=== PATIENT | male | born 1950 | race Caucasian/White ===

== ENCOUNTER → 2018-11-08 10:52 | Outpatient (CLI) | payer MEDICARE, OTHER, SELFPAY ==
--- NOTE | 2018-11-08 10:55 | MR_ITS ---
MR knee RT wo con Ordering Physician: Penny Kenney MD Patient Age: 68 years: Male HISTORY: ITS.REASON: RIGHT MEDIAL KNEE PAIN, H/O MEDIAL MENISCUS REPAIR OF RT KNE Right knee pain on and off for one year. Pain is worse when with walking. Pain is medial. Previous meniscal repair 5-7 years ago TECHNIQUE: Multiplanar multisequence imaging 1.5 Jessie Siemens, MRI COMPARISON : No previous studies for comparison FINDINGS . Lateral Compartment: intact . Lateral joint space and cartilage well maintained dial meniscus The lateral meniscus appears overall intact with no definitive tear. Upper normal cortical signal is seen at the posterior horn and posterior meniscal root but likely artifactual artifact Medial Compartment: Focal osteochondral defect, & small area of osteochondritis measuring up to 6 mm mm diameter x 2.5 mm depth. Surprisingly minimal reactive changes at the ducts this area and about its margin suggestion is old and healed. There is focal chondral thinning here and regional mild diffuse chondral loss about this area and at medial femoral condyle weightbearing surface . At the far posterior aspect of the medial femoral condyle is a Second small osteochondral signal defect measures 8 mm height, just over 3 mm depth. No focal can cavity, osseous defect. Only some slight variations in signal cartilage overlying this area. On final review a tiny Third osteochondral signal irregularity focus less than 5 mm x 3 mm depth is seen on coronal image 19 sagittal 57 at the medial corner of the medial femoral condyle ----- The the body and posterior horn of of medial meniscus demonstrates some varying signal at its inferior margin although this may reflect in part old old meniscal repair is difficult exclude a recurrent meniscal surface irregularity mainly suspect at the at at body-posterior horn region... Posterior horn appears very slightly truncated free margin on thin sections as well. This could reflect a tiny. May require further investigation particularly if pain in this area as well. The signal variations at the body are just medial to the described osteochondral defect. Which may reflect degeneration or possibly old injury here as well.. Mild increased likely reactive bone signal changes just at the very medial anterior margin of the medial tibial plateau anteriorly. Patellofemoral joint. The lateral facet appears satisfactory. The medial facet with slight undulation and cannot exclude shallow mild osteochondral irregularity at its medial margin .. Upper normal to slightly increased joint fluid. ACL is thin but intact PCL unremarkable. Medial collateral ligament is intact but there is some mild fluid signal edema overlying the intact MCL Lateral collateral ligament unremarkable. ...... Clinical IMPRESSION......... 1. Small Osteochondral defect/ (with small focus osteochondritis dissecans) -at Central weightbearing surface of medial femoral condyle 2. Focal chondral loss most pronounced at this site.- But with more diffuse chondral loss throughout the central weightbearing portion of of medial femoral condyle. 3. A Second small osteochondral signal abnormality at posterior most aspect of medial femoral condyle no bony defect. Cortex intact. 4. Very small third osteochondral signal irregularity focus less or subchondral cyst. - at the medial corner of the medial femoral condyle 5. Medial meniscus signal irregularities. Most notable at body of medial meniscus. But also slight concave contour at inferior surface of posterior horn. These could in part reflect postsurgical changes but cannot exclude some recurrent meniscal surface irregularities, or partial meniscal surface tear in these areas. Also note the anterior horn is relatively small at medial comp
== END ==
PROVIDERS: PCP Emergency Medicine; Visit Provider Emergency Medicine
DX: M25.561 Pain in right knee (principal); Z98.890 Other specified postprocedural states
CPT/HCPCS: 73721

== ENCOUNTER 2019-03-14 10:00 | Outpatient (RCR) | payer MEDICARE, OTHER, SELFPAY | END 2019-03-14 10:05 | disposition home or self-care (01) | LOC: PT 10:00 | PROVIDERS: Visit Provider Orthopaedic Surgery | DX: M25.561 Pain in right knee (principal) | CPT/HCPCS: 97010; 97014; 97110; 97163; G0283 ==

== ENCOUNTER → 2019-04-01 14:22 | Outpatient (CLI) | payer MEDICARE, OTHER, SELFPAY ==
[2019-04-01 16:32] LABS: Prostate Specific Ag Screen 1.8 ng/mL (0.0-4.0)
== END ==
PROVIDERS: Visit Provider Urology
DX: Z12.5 Encounter for screening for malignant neoplasm of prostate (principal); N40.0 Benign prostatic hyperplasia without lower urinary tract symptoms
CPT/HCPCS: 36415; G0103

== ENCOUNTER → 2019-04-17 07:42 | Outpatient (CLI) | payer MEDICARE, OTHER, SELFPAY ==
--- NOTE | 2019-04-17 07:44 | MR_ITS ---
PROCEDURE: MR SHOULDER LT WO CON CLINICAL INDICATION: BICEPS TENDONITIS OF LEFT SHOULDER Left shoulder pain extending to the mid humeral region COMPARISON: No exams were available for comparison TECHNIQUE: Routine multiplanar multi echo sequences are performed without gadolinium enhancement. FINDINGS: There is acromioclavicular arthropathy with hypertrophy and subacromial stenosis causing some impingement upon the musculotendinous insertion of the supraspinatus tendon. There is thickening with some heterogeneous increased T2 signal involving the distal aspect of the supraspinatus tendon consistent with tendinopathy/tendinosis. No complete tear evident. There may be a partial tear along the undersurface of the supraspinatus tendon distally. The infraspinatus tendon, teres minor tendon, and subscapularis tendons are unremarkable. No labral tear apparent. The bicipital tendon is in place. A small amount of fluid is present along the posterior aspect of the bicipital tendon distal to the bicipital groove. IMPRESSION: 1. Hypertrophic change of the acromioclavicular joint with subacromial stenosis with tendinopathy/tendinosis of the supraspinatus tendon. There may be a partial tear distally along the undersurface of the supraspinatus tendon 2. Minimal amount of fluid is noted along the posterior aspect of the bicipital tendon sheath which may reflect mild tendinitis. Dictated by: Fritz Cardoza MD 04/18/2019 11:16 Electronically signed by Fritz Cardoza MD in [place] 04/18/2019 11:16
== END ==
PROVIDERS: PCP Emergency Medicine; Visit Provider Emergency Medicine
DX: M67.814 Other specified disorders of tendon, left shoulder (principal)
CPT/HCPCS: 73221

== ENCOUNTER 2019-05-07 11:00 | Outpatient (RCR) | payer MEDICARE, OTHER, SELFPAY | END 2019-05-07 11:05 | disposition home or self-care (01) | LOC: OT 11:00 | PROVIDERS: PCP Emergency Medicine; Visit Provider Orthopaedic Surgery | DX: M75.42 Impingement syndrome of left shoulder (principal); M75.41 Impingement syndrome of right shoulder | CPT/HCPCS: 97014; 97110; 97166; G0283 ==

== ENCOUNTER → 2019-05-30 12:27 | Outpatient (CLI) | payer MEDICARE, OTHER, SELFPAY ==
[2019-05-30 12:44] LABS: Microscopic, Urine URINE MICROSCOPIC (MICROSCOPIC)
[2019-05-30 13:03] LABS: Appearance,Urine CLEAR (Clear); Bilirubin,Urine Negative (Negative); Blood, Urine Negative (Negative); Color,Urine YELLOW (Yellow); Glucose,Urine (UA) Negative (Negative); Ketones,Urine Negative (Negative); Leukocyte Esterase,Urine Negative (Negative); Nitrate,Urine Negative (Negative); PH,Urine 7.5 (5.0-8.5); Protein,Urine Negative (Negative); Urobilinogen,Urine 0.2 EU/dl (0.2)
[2019-05-30 13:36] LABS: Bacteria,Urine Trace /lpf; Squamous Epithelial Cell,Urine Occasional #/hpf (0-5); WBC,Urine Occasional #/hpf (0-3)
[2019-05-30 15:13] LABS: Albumin Level 4.1 gm/dL (3.4-5.0); Anion Gap 14.1 mEq/L (5-15); Blood Urea Nitrogen 25 mg/dL (7-18); Calcium 9.2 mg/dL (8.5-10.1); Carbon Dioxide 29 mmol/L (21.0-32.0); Chloride 102 mmol/L (98-107); Creatinine,Serum 1.09 mg/dL (0.70-1.30); Estimated Glomerular Filt Rate 67 ml/min (>60); GFR (African American) 81 ML/MIN (>60); Glucose 88 mg/dL (74-106); Phosphorous 3.4 mg/dL (2.4-4.9); Potassium 4.1 mmoL/L (3.5-5.1); Sodium 141 mmol/L (136-145)
[2019-05-31 10:20] LABS: Vitamin D 25 Hydroxy 40.7 ng/mL (30.0-100.0)
== END ==
PROVIDERS: Visit Provider Internal Medicine Nephrology
DX: N21.9 Calculus of lower urinary tract, unspecified (principal); N17.9 Acute kidney failure, unspecified; N40.0 Benign prostatic hyperplasia without lower urinary tract symptoms; E78.5 Hyperlipidemia, unspecified; E55.9 Vitamin D deficiency, unspecified
CPT/HCPCS: 36415; 80069; 81001; 82652; 84550

== ENCOUNTER → 2019-12-23 08:29 | Outpatient (CLI) | payer MEDICARE, OTHER, SELFPAY ==
--- NOTE | 2019-12-23 08:30 | XR_ITS ---
PROCEDURE: XR KNEE RT 4V CLINICAL INDICATION: right knee pain COMPARISON: No exams were available for comparison FINDINGS: No fracture or dislocation. No lytic or blastic change. There is normal mineralization. There are mild osteoarthritic changes of the medial compartment and patellofemoral joint. There is generalized vascular calcification. Other findings:None. IMPRESSION: Mild osteoarthritis Dictated by: Fritz Cardoza MD 12/23/2019 08:56 Electronically signed by Fritz Cardoza MD in [place] 12/23/2019 08:56
== END ==
PROVIDERS: PCP Family Medicine; Visit Provider Orthopaedic Surgery
DX: M25.561 Pain in right knee (principal)
CPT/HCPCS: 73564

== ENCOUNTER → 2020-03-01 12:46 | Outpatient (CLI) | payer MEDICARE, OTHER, SELFPAY ==
[2020-03-01 12:55] LABS: Microscopic, Urine URINE MICROSCOPIC (MICROSCOPIC)
[2020-03-01 13:42] LABS: Appearance,Urine CLEAR (Clear); Bilirubin,Urine Negative (Negative); Blood, Urine Negative (Negative); Color,Urine YELLOW (Yellow); Glucose,Urine (UA) Negative (Negative); Ketones,Urine Negative (Negative); Leukocyte Esterase,Urine Negative (Negative); Nitrate,Urine Negative (Negative); Protein,Urine Negative (Negative); Specific Gravity, Urine 1.015 (1.005-1.030); Urobilinogen,Urine 0.2 EU/dl (0.2)
[2020-03-01 13:53] LABS: Albumin Level 4.7 g/dl (3.5-5.0); Anion Gap 15.7 mEq/L (5-15); Blood Urea Nitrogen 25 mg/dl (9-20); Calcium 10.3 mg/dl (8.4-10.2); Carbon Dioxide 32 mmol/L (22.0-30.0); Chloride 98 mmol/L (98-107); Estimated Glomerular Filt Rate 74 ml/min (>60); GFR (African American) 89 ML/MIN (>60); Glucose 99 mg/dl (74-100); Phosphorous 3.8 mg/dl (2.5-4.5); Potassium 4.7 mmoL/L (3.5-5.1); Sodium 141 mmol/L (136-145)
[2020-03-01 14:05] LABS: Intact Parathyroid Hormone 31.2 pg/mL (7.5-53.5)
[2020-03-01 14:11] LABS: 25-OH Vitamin D, Total 57.2 ng/mL (30-100)
[2020-03-01 14:24] LABS: Prostate Specific Ag, Diagnost 1.89 ng/ml (0.0-4.0)
== END ==
PROVIDERS: Visit Provider Internal Medicine Nephrology
DX: N40.0 Benign prostatic hyperplasia without lower urinary tract symptoms (principal); E55.9 Vitamin D deficiency, unspecified
CPT/HCPCS: 36415; 80069; 81001; 82306; 83970; 84153

== ENCOUNTER → 2020-04-20 14:50 | Outpatient (POV) | payer MEDICARE, OTHER, SELFPAY | PROVIDERS: Visit Provider Dermatology | DX: Z00.00 Encounter for general adult medical examination without abnormal findings (principal) ==

== ENCOUNTER → 2020-08-25 11:58 | Outpatient (CLI) | payer MEDICARE, OTHER, SELFPAY ==
[2020-08-25 12:03] LABS: Microscopic, Urine URINE MICROSCOPIC (MICROSCOPIC)
[2020-08-25 12:43] LABS: Appearance,Urine CLEAR (Clear); Bilirubin,Urine Negative (Negative); Blood, Urine Negative (Negative); Color,Urine YELLOW (Yellow); Glucose,Urine (UA) Negative (Negative); Ketones,Urine Negative (Negative); Leukocyte Esterase,Urine Negative (Negative); Nitrate,Urine Negative (Negative); PH,Urine 8.5 (5.0-8.5); Protein,Urine Negative (Negative); Specific Gravity, Urine 1.015 (1.005-1.030); Urobilinogen,Urine 0.2 EU/dl (0.2)
[2020-08-25 12:54] LABS: Amorphous Sediment,Urine 1+ /lpf; Bacteria,Urine 1+ /lpf
[2020-08-25 13:30] LABS: Albumin Level 4.7 g/dl (3.5-5.0); Anion Gap 12.1 mEq/L (5-15); Blood Urea Nitrogen 18 mg/dl (9-20); Carbon Dioxide 32 mmol/L (22.0-30.0); Chloride 100 mmol/L (98-107); Estimated Glomerular Filt Rate 74 ml/min (>60); GFR (African American) 89 ML/MIN (>60); Glucose 99 mg/dl (74-100); Phosphorous 3.4 mg/dl (2.5-4.5); Potassium 4.1 mmoL/L (3.5-5.1); Sodium 140 mmol/L (136-145); Uric Acid 3.6 mg/dl (3.5-8.5)
[2020-08-25 13:47] LABS: 25-OH Vitamin D, Total 35.9 ng/mL (30-100)
== END ==
PROVIDERS: Visit Provider Internal Medicine Nephrology
DX: N17.9 Acute kidney failure, unspecified (principal); N21.9 Calculus of lower urinary tract, unspecified; N40.0 Benign prostatic hyperplasia without lower urinary tract symptoms; E78.5 Hyperlipidemia, unspecified; E55.9 Vitamin D deficiency, unspecified
CPT/HCPCS: 36415; 80069; 81001; 82306; 84550; 87086

== ENCOUNTER → 2020-09-10 13:30 | Outpatient (POV) | payer MEDICARE, OTHER, SELFPAY | PROVIDERS: Visit Provider Internal Medicine Nephrology | DX: Z00.00 Encounter for general adult medical examination without abnormal findings (principal) ==

== ENCOUNTER → 2020-09-16 10:34 | Outpatient (CLI) | payer MEDICARE, OTHER, SELFPAY ==
--- NOTE | 2020-09-16 10:52 | XR_ITS ---
PROCEDURE: XR CHEST 2V CLINICAL HISTORY: CONTUSION OF LT FRONT WALL OF THORAX COMPARISON: No exams were available for comparison FINDINGS: The cardiomediastinal silhouette and pulmonary vascularity are within normal limits. The lungs are clear without infiltrates, suspicious nodules, or pleural effusions. Calcified granuloma in the left lung. Vascular calcification is noted. No acute bony abnormalities. IMPRESSION: No acute findings. Dictated by: Mara Viera 09/16/2020 11:39 Mara Viera in [place] 09/16/2020 11:39
== END ==
PROVIDERS: PCP Family Medicine; Visit Provider Family Medicine
DX: S20.212D Contusion of left front wall of thorax, subsequent encounter (principal)
CPT/HCPCS: 71046

== ENCOUNTER → 2021-03-05 09:00 | Outpatient (CLI) | payer MEDICARE, OTHER, SELFPAY ==
[2021-03-05 09:07] LABS: Microscopic, Urine URINE MICROSCOPIC (MICROSCOPIC)
[2021-03-05 10:21] LABS: Alanine Aminotransferase 49 U/L (12-78); Albumin Level 4.6 g/dl (3.5-5.0); Albumin/Globulin Ratio 1.8 (1.1-1.8); Alkaline Phosphatase 78 U/L (38-126); Anion Gap 14.3 mEq/L (5-15); Aspartate Amino Transferase 43 U/L (17-59); Bilirubin,Total 0.5 mg/dl (0.2-1.3); Blood Urea Nitrogen 27 mg/dl (9-20); Carbon Dioxide 32 mmol/L (22.0-30.0); Chloride 101 mmol/L (98-107); Estimated Glomerular Filt Rate 74 ml/min (>60); GFR (African American) 89 ML/MIN (>60); Globulin 2.6 g/dL (1.3-3.2); Glucose 83 mg/dl (74-100); Potassium 4.3 mmoL/L (3.5-5.1); Sodium 143 mmol/L (136-145); Total Protein,Serum 7.2 g/dl (6.3-8.2); Uric Acid 3.9 mg/dl (3.5-8.5)
[2021-03-05 10:26] LABS: Appearance,Urine CLEAR (Clear); Bilirubin,Urine Negative (Negative); Blood, Urine Negative (Negative); Color,Urine YELLOW (Yellow); Glucose,Urine (UA) Negative (Negative); Ketones,Urine Negative (Negative); Leukocyte Esterase,Urine Negative (Negative); Nitrate,Urine Negative (Negative); PH,Urine 7.5 (5.0-8.5); Protein,Urine Negative (Negative); Urobilinogen,Urine 0.2 EU/dl (0.2)
[2021-03-05 10:33] LABS: Intact Parathyroid Hormone 34.8 pg/mL (7.5-53.5)
[2021-03-05 10:39] LABS: 25-OH Vitamin D, Total 58.5 ng/mL (30-100)
[2021-03-05 10:48] LABS: Hematocrit 48.5 % (42.0-52.0); Hemoglobin 16.7 g/dL (14.1-18.0); Mean Corpuscular HGB Conc 34.4 g/dL (31.8-35.4); Mean Corpuscular Hemoglobin 33.2 pg (27.0-31.2); Mean Corpuscular Volume 96.6 fl (80-94); Platelet Count 197 K/mm3 (142-424); Red Blood Count 5.02 M/mm3 (4.60-6.20); Red Cell Distribution Width 13.3 % (11.5-17.5); White Blood Count 7.5 K/mm3 (4.8-10.8)
== END ==
PROVIDERS: Visit Provider Internal Medicine Nephrology
DX: N18.2 Chronic kidney disease, stage 2 (mild) (principal); N20.0 Calculus of kidney
CPT/HCPCS: 36415; 80053; 81001; 82306; 83970; 84550; 85014; 85018; 85048; 85049

== ENCOUNTER → 2021-03-11 13:50 | Outpatient (POV) | payer MEDICARE, OTHER, SELFPAY | PROVIDERS: Visit Provider Internal Medicine Nephrology | DX: Z00.00 Encounter for general adult medical examination without abnormal findings (principal) ==

== ENCOUNTER → 2021-09-02 11:17 | Outpatient (CLI) | payer MEDICARE, OTHER, SELFPAY ==
[2021-09-02 12:26] LABS: Basophils # 0.1 K/mm3 (0-0.2); Basophils % 0.9 % (0.1-2.0); Eosinophils # 0.2 K/mm3 (0.0-0.4); Hematocrit 48.8 % (42.0-52.0); Hemoglobin 15.8 g/dL (14.1-18.0); Lymphocytes # 1.3 K/mm3 (0.7-4.5); Lymphocytes % 25.7 % (10-50); Mean Corpuscular HGB Conc 32.4 g/dL (31.8-35.4); Mean Corpuscular Hemoglobin 31.4 pg (27.0-31.2); Mean Corpuscular Volume 97.2 fl (80-94); Mean Platelet Volume 8.6 fl (7.4-10.4); Monocytes # 0.4 K/mm3 (0.1-1.0); Monocytes % 7.2 % (1.7-9.3); Neutrophils # 3.3 K/mm3 (1.8-7.8); Neutrophils % 63.2 % (37.0-80.0); Platelet Count 227 K/mm3 (142-424); Red Blood Count 5.03 M/mm3 (4.60-6.20); Red Cell Distribution Width 13.6 % (11.5-17.5); White Blood Count 5.1 K/mm3 (4.8-10.8)
[2021-09-02 13:41] LABS: Anion Gap 18.3 mEq/L (5-15); Blood Urea Nitrogen 23 mg/dl (9-20); Calcium 9.1 mg/dl (8.4-10.2); Carbon Dioxide 24 mmol/L (22.0-30.0); Chloride 101 mmol/L (98-107); Estimated Glomerular Filt Rate 83 ml/min (>60); GFR (African American) 101 ML/MIN (>60); Glucose 91 mg/dl (74-100); Potassium 4.3 mmoL/L (3.5-5.1); Sodium 139 mmol/L (136-145)
== END ==
PROVIDERS: Visit Provider Surgery
DX: K40.90 Unilateral inguinal hernia, without obstruction or gangrene, not specified as recurrent (principal); Z01.812 Encounter for preprocedural laboratory examination; Z11.52 Encounter for screening for COVID-19
CPT/HCPCS: 36415; 80048; 85025; C9803; U0003; U0005

== ENCOUNTER 2021-09-05 06:06 | Day surgery (SDC) | payer MEDICARE, OTHER, SELFPAY ==
[2021-08-30 14:44] VITALS: BMI 26.3
[2021-09-05] VITALS (12 sets, daily range): BP systolic 111–136; BP diastolic 69–86; PULSE 55–72; RESP 12–18; TEMP 36.1–43; O2SAT 92–97
--- NOTE | 2021-09-05 07:32 | HMH.ANESCL ---
[facility] Anesthesia Checklist - Structural Data Admitted From: Home Planned Operative Procedure/s: lap bilat inguinal hernia repair Consent for Planned Operative Procedure(s) Verified: Yes - Additional verifications Anesthesia Reactions: No Hx Blood Transfusions: No Blood Transfusion Reaction: No - Airway Assessment C-Spine Mobility Assessed: Yes TMJ Mobility Assessed: Yes Dentition: Good Dentition - Neurological Assessment Level of Consciousness: Awake, Alert, Appropriate - Anesthesia Plan Anesthesia Risk discussed: Yes Anesthesia Plan: Verified ASA Class: III Anesthesia Type: General - Preoperative Comments Pre-Operative Comments: none [facility] History Medical History: Reports:: Anxiety, Cancer, Depression, Gastroesophageal Reflux Disease(GERD), Hyperlipidemia, Hypertension, Kidney Stones Denies:: Diabetes Mellitus Type 1, Diabetes Mellitus Type 2, Internal Pacemaker, Lung Disease, Seizures *Have you ever received a pneumonia vaccine?: Yes *Have you received a flu vaccine this season?: Yes Other Medical History: Reports: Arthritis. Denies: Blood Transfusion Reaction Anesthesia experience/problems:: none Laterality Cases: Right: Arthroscopy Knee, Bilateral: Tonsillectomy Other Surgeries: Yes: No Previous Surgery, Cancer Surgery, Colonoscopy. No: Pacemaker Amputation: No Fractures: No - *Social History Last grade of school completed: Advanced degree Smoking Status: Never smoker Alcohol Intake: never Substance Use Type: denies use *Occupational Status:: other Housing: house Household Members: spouse *Travel in the last 8 weeks: None - Psychiatric History Pschychiatric History:: Reports:: Anxiety, Depression Family Hx:: No significant family history
--- NOTE | 2021-09-05 08:57 | HMH.OPNOTE ---
Date of procedure: 09/05/21 Pre-op Diagnosis:: Bilateral inguinal hernia Post-op Diagnosis:: Same Procedure performed:: Bilateral laparoscopic inguinal hernia repair (TEPP) with placement of large Bard 3D max mesh bilaterally Surgeon:: Nilesh James MD MENTAL HEALTH PROFESSIONAL:: Giovanni Barker Anesthesia: GETA Estimated blood loss (mL): 15 Clinical Note:: Patient presents for hernia repair. He is a 71-year-old male who was referred by Dr. Clifton Herndon for inguinal hernia. I had initially seen him in the office a couple of months ago. He is a retired pcas and works on a farm. He does state that he has a prior history of lymphoma. He was found to have swelling in the right inguinal area for about 6 months at the time. This has increased in size. He does not have any severe pain. He does wish to resume exercising and is concerned about the hernia. When I saw him in the office he had a moderate right inguinal hernia with probable small left inguinal hernia. I discussed the different options with him including possible laparoscopic repair with mesh. Initially the patient did have some reservation about the mesh. I had recommended he undergo second opinion consultation and he saw surgeon at [facility]. He now wishes to proceed with hernia repair. It was for laparoscopic possible open hernia due to the bilaterality with concentration on the right side given that this was most symptomatic. Operative findings:: He had bilateral inguinal hernias with largely open internal ring is a patent processes vaginalis with weakness in the floor as a direct hernia a as beginnings of direct hernia as well bilaterally. Operative note:: Patient was taken to the operating room. He was given preoperative intravenous antibiotics. In the operating room he was placed in a supine position. General anesthesia was induced via endotracheal tube. Lucas catheter was placed. Abdomen and perineum were prepped and draped in the standard surgical fashion. Infraumbilical skin incision was made. Dissection was carried down to the anterior rectus fascia. Fascia was incised to the right of the linea alba. Rectus muscles were retracted laterally and the preperitoneal space was entered. Dissecting balloon trocar was inserted in the preperitoneal space and the preperitoneal space was dissected out. The dissecting balloon trocar was replaced with the structural balloon trocar. CO2 pneumo preperitoneum was then achieved to 15 mmHg. A couple 5 mm trochars were inserted in the mid abdomen inferior to the umbilical area. Attention was turned to dissection on the right side. Landmarks were identified. Yanick's ligament and pubic tubercle were identified. Dissection was carried out dissecting free the preperitoneal space laterally. Cord structures were dissected free. There was some herniated fat as an indirect hernia with a widely patent processes vaginalis. This was able to be dissected free and reduced. All structures were identified including pubic tubercle and Yanick's ligament, inferior epigastric vessels, cord structures, iliac vessels. The floor of the inguinal canal appeared to be weakened as beginnings of a direct hernia as well. At this time attention was turned to dissection on the left. Once again all landmarks were identified identifying Yanick's ligament, inferior epigastric vessels, cord structures, and iliac vessels. Dissection was carried out dissecting free the preperitoneal space. Herniated fat along with the cord was dissected free and he had a widely patent internal ring as an indirect hernia once again. Dissection was carried out laterally. Once the space was fully dissected free local anesthetic was infiltrated bilaterally for laparoscopically directed nerve block. Large sized Bard 3D max mesh dedicated for the left side was inserted into the preperitoneal space. It was oriented intracorporeally to cover the iliopectineal orifice with good
--- NOTE | 2021-09-05 09:04 | HMH.ANESI ---
[facility] Anesthesia Record Part I Intake, IV Amount: 1,500 Estimated blood loss (mL): 0 Urine output (mL): 250 Blood Pressure: 123/70 SaO2: 96 Pulse Rate: 72 Respiratory Rate: 12 Temperature: 97 F Patient is:: Awake, Stable Stable to PACU at:: 09:00
--- NOTE | 2021-09-05 09:36 | PC.NURSE ---
0928-detailed report called to MAXIME Barlow [id number]-pt transported to post op via stretcher w/carlos rails up and left in care of MAXIME Barlow with bed locked in lowest position, vss, pt stable
[2021-09-05 13:20] LABS: Microscopic,Cath URINE MICROSCOPIC (MICROSCOPIC)
[2021-09-05 14:33] LABS: Appearance,Urine/Cath CLEAR (Clear); Bilirubin,Cath Negative (Negative); Blood, Urine/Cath 1+ (Negative); Color,Urine/Cath YELLOW (Yellow); Glucose,Urine/Cath (UA) Negative (Negative); Ketones,Urine/Cath Negative (Negative); Leukocyte Esterase,Cath Negative (Negative); Nitrate,Cath Negative (Negative); Protein,Urine/Cath Negative (Negative); Urobilinogen,Cath 0.2 EU/dl (0.2)
[2021-09-05 15:11] LABS: Bacteria,Urine/Cath TRACE /lpf; Squamous Epithelial Ur./Cath Occasional #/hpf (0-5); WBC,Urine/Cath Occasional #/hpf (0-3)
--- NOTE | 2021-09-06 07:00 | HMH.ANESII ---
[facility] Anesthesia Record Part II Discharge Time: 09:30 Destination: Surgical Day Care (OP Surgery) PACU nurse assessment reviewed?: Yes Patient Condition:: Good Anesthesia Complications:: None Swallowing reflex intact?: Yes Cyanosis?: No Blood Pressure: 113/69 Pulse Rate: 59 Temperature: 97.6 F Mental Status: Alert & Oriented Pain level:: 2 Nausea and/or vomitting:: None Intake, IV Amount: 0
[2021-09-06 07:01] VITALS: BP 113/69; PULSE 59; TEMP 36.4
== END 2021-09-05 10:31 | disposition home or self-care (01) ==
LOC: OR 06:07
PROVIDERS: PCP Family Medicine; Visit Provider Surgery
PROC: (CPT 49650; principal; 2021-09-05 07:30)
DX: K40.00 Bilateral inguinal hernia, with obstruction, without gangrene, not specified as recurrent (principal); F41.9 Anxiety disorder, unspecified; F32.A Depression, unspecified; K21.9 Gastro-esophageal reflux disease without esophagitis; E78.5 Hyperlipidemia, unspecified; I10 Essential (primary) hypertension; M19.90 Unspecified osteoarthritis, unspecified site; M10.9 Gout, unspecified; Z85.9 Personal history of malignant neoplasm, unspecified; Z87.442 Personal history of urinary calculi; Z79.82 Long term (current) use of aspirin; Z79.899 Other long term (current) drug therapy
CPT/HCPCS: 49650; 81001; 96374; C1781; J2405; J2710

== ENCOUNTER → 2021-11-25 08:27 | Outpatient (CLI) | payer MEDICARE, OTHER, SELFPAY ==
[2021-11-25 09:02] LABS: Microscopic, Urine URINE MICROSCOPIC (MICROSCOPIC)
[2021-11-25 10:02] LABS: Appearance,Urine CLEAR (Clear); Bilirubin,Urine Negative (Negative); Blood, Urine Negative (Negative); Color,Urine YELLOW (Yellow); Glucose,Urine (UA) Negative (Negative); Ketones,Urine Negative (Negative); Leukocyte Esterase,Urine Negative (Negative); Nitrate,Urine Negative (Negative); PH,Urine 7.5 (5.0-8.5); Protein,Urine Negative (Negative); Urobilinogen,Urine 0.2 EU/dl (0.2)
[2021-11-25 10:08] LABS: Hematocrit 48.1 % (42.0-52.0); Hemoglobin 16.3 g/dL (14.1-18.0); Mean Corpuscular HGB Conc 33.8 g/dL (31.8-35.4); Mean Corpuscular Hemoglobin 32.6 pg (27.0-31.2); Mean Corpuscular Volume 96.3 fl (80-94); Platelet Count 202 K/mm3 (142-424); Red Blood Count 4.99 M/mm3 (4.60-6.20); Red Cell Distribution Width 13.5 % (11.5-17.5); White Blood Count 5.6 K/mm3 (4.8-10.8)
[2021-11-25 10:13] LABS: Squamous Epithelial Cell,Urine Occasional #/hpf (0-5); WBC,Urine Occasional #/hpf (0-3)
[2021-11-25 10:51] LABS: Alanine Aminotransferase 32 U/L (12-78); Albumin Level 4.5 g/dl (3.5-5.0); Albumin/Globulin Ratio 1.8 (1.1-1.8); Alkaline Phosphatase 79 U/L (38-126); Anion Gap 12.2 mEq/L (5-15); Aspartate Amino Transferase 38 U/L (17-59); Bilirubin,Total 0.2 mg/dl (0.2-1.3); Blood Urea Nitrogen 20 mg/dl (9-20); Calcium 9.7 mg/dl (8.4-10.2); Carbon Dioxide 32 mmol/L (22.0-30.0); Chloride 101 mmol/L (98-107); Estimated Glomerular Filt Rate 83 ml/min (>60); GFR (African American) 101 ML/MIN (>60); Globulin 2.5 g/dL (1.3-3.2); Glucose 100 mg/dl (74-100); Potassium 4.2 mmoL/L (3.5-5.1); Sodium 141 mmol/L (136-145); Uric Acid 3.5 mg/dl (3.5-8.5)
[2021-11-25 11:04] LABS: Intact Parathyroid Hormone 49.6 pg/mL (7.5-53.5)
[2021-11-25 11:20] LABS: Prostate Specific Ag Screen 2.2 ng/ml (0.0-4.0)
== END ==
PROVIDERS: PCP Urology; Visit Provider Internal Medicine Nephrology
DX: C83.30 Diffuse large B-cell lymphoma, unspecified site (principal); N18.2 Chronic kidney disease, stage 2 (mild); E55.9 Vitamin D deficiency, unspecified; Z12.5 Encounter for screening for malignant neoplasm of prostate
CPT/HCPCS: 36415; 80053; 81001; 82306; 83970; 84550; 85014; 85018; 85048; 85049; G0103

== ENCOUNTER → 2022-01-06 15:21 | Outpatient (POV) | payer MEDICARE, OTHER, SELFPAY | PROVIDERS: Visit Provider Internal Medicine Nephrology | DX: Z00.00 Encounter for general adult medical examination without abnormal findings (principal) ==

== ENCOUNTER → 2022-08-04 10:43 | Outpatient (CLI) | payer MEDICARE, OTHER, SELFPAY ==
--- NOTE | 2022-08-04 10:52 | XR_ITS ---
FINAL REPORT CLINICAL HISTORY: right anterior-medial knee pain, swelling, injection x1 month ago COMPARISON: 12/23/2019 FINDINGS: Three views of the right knee were obtained. There is no acute osseous abnormality of the right knee. The joint space is preserved. There is degenerative joint disease, most pronounced in the medial compartment where it has progressed. Note is made of vascular calcification. IMPRESSION: Degenerative joint disease. Reviewed, Interpreted and Dictated by Poornima Ross MD Transcribed by Margarette Khalil Authenticated and [facility]
== END ==
PROVIDERS: PCP Family Medicine; Visit Provider Orthopaedic Surgery
DX: M17.11 Unilateral primary osteoarthritis, right knee (principal)
CPT/HCPCS: 73562

== ENCOUNTER → 2022-10-09 13:26 | Outpatient (CLI) | payer MEDICARE, OTHER, SELFPAY ==
[2022-10-09 13:43] LABS: Microscopic, Urine URINE MICROSCOPIC (MICROSCOPIC)
[2022-10-09 14:17] LABS: Hematocrit 46.2 % (42.0-52.0); Hemoglobin 15.3 g/dL (14.1-18.0); Mean Corpuscular Hemoglobin 31.6 pg (27.0-31.2); Mean Corpuscular Volume 95.8 fl (80-94); Platelet Count 200 K/mm3 (142-424); Red Blood Count 4.83 M/mm3 (4.60-6.20); Red Cell Distribution Width 13.7 % (11.5-17.5); White Blood Count 7.6 K/mm3 (4.8-10.8)
[2022-10-09 14:40] LABS: Alanine Aminotransferase 27 U/L (12-78); Albumin Level 4.7 g/dl (3.5-5.0); Alkaline Phosphatase 65 U/L (38-126); Anion Gap 13.3 mEq/L (5-15); Aspartate Amino Transferase 30 U/L (17-59); Bilirubin,Total 0.6 mg/dl (0.2-1.3); Blood Urea Nitrogen 27 mg/dl (9-20); Calcium 9.4 mg/dl (8.4-10.2); Carbon Dioxide 32 mmol/L (22.0-30.0); Chloride 98 mmol/L (98-107); Estimated Glomerular Filt Rate 66 ml/min (>60); GFR (African American) 80 ML/MIN (>60); Globulin 2.3 g/dL (1.3-3.2); Glucose 88 mg/dl (74-100); Potassium 4.3 mmoL/L (3.5-5.1); Sodium 139 mmol/L (136-145); Uric Acid 3.1 mg/dl (3.5-8.5)
[2022-10-09 14:53] LABS: 25-OH Vitamin D, Total 50.1 ng/mL (30-100)
[2022-10-09 15:24] LABS: Appearance,Urine CLEAR (Clear); Bilirubin,Urine Negative (Negative); Blood, Urine Negative (Negative); Color,Urine YELLOW (Yellow); Glucose,Urine (UA) Negative (Negative); Ketones,Urine Negative (Negative); Leukocyte Esterase,Urine Negative (Negative); Nitrate,Urine Negative (Negative); PH,Urine 6.5 (5.0-8.5); Protein,Urine Negative (Negative); Specific Gravity, Urine 1.015 (1.005-1.030); Urobilinogen,Urine 0.2 EU/dl (0.2)
[2022-10-09 15:47] LABS: Bacteria,Urine Trace /lpf
[2022-10-09 15:54] LABS: Creatinine,Urine Random 90 mg/dL (Not Estab.)
== END ==
PROVIDERS: PCP Family Medicine; Visit Provider Internal Medicine Nephrology
DX: N20.0 Calculus of kidney (principal); E55.9 Vitamin D deficiency, unspecified; N40.0 Benign prostatic hyperplasia without lower urinary tract symptoms; N18.2 Chronic kidney disease, stage 2 (mild); E78.5 Hyperlipidemia, unspecified; C83.30 Diffuse large B-cell lymphoma, unspecified site
CPT/HCPCS: 36415; 80053; 81001; 82306; 82570; 84155; 84550; 85014; 85018; 85048; 85049

== ENCOUNTER → 2022-10-12 14:49 | Outpatient (CLI) | payer MEDICARE, OTHER, SELFPAY | PROVIDERS: PCP Family Medicine; Visit Provider Internal Medicine Nephrology | DX: N20.0 Calculus of kidney (principal); N18.2 Chronic kidney disease, stage 2 (mild); E55.9 Vitamin D deficiency, unspecified; E78.5 Hyperlipidemia, unspecified; N40.0 Benign prostatic hyperplasia without lower urinary tract symptoms; C83.30 Diffuse large B-cell lymphoma, unspecified site | CPT/HCPCS: 36415 ==

== ENCOUNTER → 2022-10-16 12:52 | Outpatient (CLI) | payer MEDICARE, OTHER, SELFPAY | PROVIDERS: PCP Family Medicine; Visit Provider Family Medicine | DX: R53.83 Other fatigue (principal); G47.33 Obstructive sleep apnea (adult) (pediatric); R06.83 Snoring | CPT/HCPCS: G0399 ==

== ENCOUNTER 2022-10-19 15:00 | Outpatient (RCR) | payer MEDICARE, OTHER, SELFPAY ==
--- NOTE | 2022-08-15 13:23 | HMH.PTOPEV ---
PT Outpatient Evaluation Rehab PT Outpatient Evaluation Start: 08/15/22 13:14 Freq: Status: Active Protocol: Document 08/15/22 13:15 AUDREY (Rec: 08/15/22 13:23 AUDREY [id number]) E-signed By Joe Fisher, PT Outpatient Therapy Subjective History Subjective History Pt reports h/o chronic right knee pain since 'meniscus surgery' ~15 years ago. Pt reports right knee pain has progressed since sx., and now reports constant right knee ( medial > lateral) pain and intermittent episodes of balance deficit d/t pain. Pt reports however, recent right knee injection 'has helped a lot, but I had Covid a couple weeks ago and it really got me down so I feel pretty weak.' Chief Complaint Pain Symptom Type Ache,Sharp,Dull,Stabbing Symptoms Relieved By Prescription Meds Symptoms Aggravated By Standing,Walking Prior Functional Limitations Standing,Walking Current Functional Limitations Housework,Standing,Recreation Activity,Walking Symptom Description Constant but Variable Level of pain today (0-10) 1 Pain scale - at its best (0-10) 1 Pain scale - at its worst (0-10) 7 Hip/Knee Eval Gait Observation General Gait Pattern Observation Antalgic Gait Assistive Device Assistive Devices None / NA Palpation Tenderness right Knee Palpation Finding Tenderness Knee Palpation Overall Comment medial jt line 2-3/4, lateral jt line 1/4 MMT Hip Flexion Strength Grade 4 Good Hip Abduction Strength Grade 4- Good- Hip Adduction Strength Grade 4- Good- Gluteus Cb Strength Grade 4- Good- Hip External Rotation Strength Grade 4 Good Hip Internal Rotation Strength Grade 4 Good Knee Extension Strength Grade 5 Normal Knee Flexion Strength Grade 5 Normal ROM left Knee Flexion Active Range of Motion ( 0-135 degrees) right Knee Flexion Active Range of Motion ( 0-130 degrees) Knee ROM Limitations Soft Tissue Tightness Special Tests Hip Piriformis Test Negative Right Sciatic Nerve Tension Test Negative Right Knee Valgus Stress Test Negative Right Knee Varus Stress Test Negative Right Knee Inocencio Test Negative Right Patella Apprehension Test Negative Right Outpatient Therapy Assessment Impairments Problems/Impairmm
--- NOTE | 2022-09-12 13:47 | HMH.RHREAS ---
Rehab Reassessment Rehab OP Re-assessment Start: 09/12/22 12:52 Freq: Status: Active Protocol: Document 09/12/22 12:53 AUDREY (Rec: 09/12/22 13:47 AUDREY [id number]) E-signed By Joe Fisher, PT Rehab Re-assessment Subjective Subjective Pt reports improved right LE strength and function since I eval, and reports right knee intermittent discomfort @ 3-4/ 10 on VAS Objective Objective Notes MMT: R HIP FLX 5/5, R HIP ABD 4-4+/5, R HIP ADD 5/5, R HIP EXT 4+/5, R HIP IR 5/5, R HIP ER 5/5, R KNEE EXT 5/5, R KNEE FLX 4+-5/5 TTP: R KNEE MEDIAL JT LINE 1/4 AROM: R KNEE FLX 0-133 Assessment Progress Assessment Progressing as Expected Assessment Notes SIGNIFICANT IMPROVEMENT IN RIGHT LE STRENGTH, TTP @ RIGHT KNEE, AND IMPROVED R KNEE AROM Patient goals met STG'S 12/23 LTG'S 10/24 Goals Not Met STG'S 06/25, LTG'S 09/24 Plan Plan Pt to continue w/skilled P.T. to make further improvements in right LE strength, TTP, and ROM to allow for optimal function Frequency of Therapy 1-2x/wk Duration of therapy 2-4wks Time and Billing Re-Eval Time 12 Re-Eval Billing Units 1 PHYSICIAN CERTIFICATION: I certify the specified therapy services for Oli Martinez are required, authorized, and reviewed every 30 days.
--- NOTE | 2022-10-12 15:39 | HMH.RHREAS ---
Rehab Reassessment Rehab OP Re-assessment Start: 09/12/22 12:52 Freq: Status: Active Protocol: Document 10/12/22 15:20 AUDREY (Rec: 10/12/22 15:39 AUDREY [id number]) E-signed By Joe Fisher, PT Rehab Re-assessment Subjective Subjective Pt reports improved right LE strength and function @75-80% overall since I eval, and reports right knee intermittent discomfort @1-2/ 10 on VAS Objective Objective Notes MMT: R HIP FLX 5/5, R HIP ABD 4+/5, R HIP ADD 5/5, R HIP EXT 4+/5, R HIP IR 5/5, R HIP ER 5/5, R KNEE EXT 5/5, R KNEE FLX 5/5 TTP: R KNEE MEDIAL JT LINE 0/4 , R KNEE POPITEAL SPACE 1/4 AROM: R KNEE FLX 0-136 Assessment Progress Assessment Progressing as Expected Assessment Notes SIGNIFICANT IMPROVEMENT IN RIGHT LE STRENGTH, TTP @ RIGHT KNEE, AND IMPROVED R KNEE AROM Patient goals met STG'S 01/23 LTG'S 12/24 Goals Not Met LTG'S 07/27 Plan Plan Pt to continue w/skilled P.T. to make further improvements in right LE strength, TTP, and ROM to allow for optimal function Frequency of Therapy 1-2X/WK Duration of therapy 2-4WKS Time and Billing Re-Eval Time 11 Re-Eval Billing Units 1 PHYSICIAN CERTIFICATION: I certify the specified therapy services for Oli Martinez are required, authorized, and reviewed every 30 days.
== END 2022-10-19 15:05 | disposition home or self-care (01) ==
LOC: PT 15:00
PROVIDERS: PCP Family Medicine; Visit Provider Orthopaedic Surgery
DX: M17.11 Unilateral primary osteoarthritis, right knee (principal)
CPT/HCPCS: 97010; 97014; 97035; 97110; 97112; 97163; 97164; 97530; G0283

== ENCOUNTER → 2023-04-16 11:44 | Outpatient (CLI) | payer MEDICARE, OTHER, SELFPAY ==
[2023-04-16 12:01] LABS: Microscopic, Urine URINE MICROSCOPIC (MICROSCOPIC)
[2023-04-16 12:19] LABS: Hematocrit 44.9 % (42.0-52.0); Hemoglobin 15.4 g/dL (14.1-18.0); Mean Corpuscular HGB Conc 34.4 g/dL (31.8-35.4); Mean Corpuscular Volume 96.1 fl (80-94); Platelet Count 181 K/mm3 (142-424); Red Blood Count 4.67 M/mm3 (4.60-6.20); Red Cell Distribution Width 13.3 % (11.5-17.5); White Blood Count 6.2 K/mm3 (4.8-10.8)
[2023-04-16 12:23] LABS: Appearance,Urine CLOUDY (Clear); Bilirubin,Urine Negative (Negative); Blood, Urine Negative (Negative); Color,Urine YELLOW (Yellow); Glucose,Urine (UA) Negative (Negative); Ketones,Urine Negative (Negative); Leukocyte Esterase,Urine Negative (Negative); Nitrate,Urine Negative (Negative); Protein,Urine Negative (Negative); Specific Gravity, Urine 1.015 (1.005-1.030); Urobilinogen,Urine 0.2 EU/dl (0.2)
[2023-04-16 12:34] LABS: Amorphous Sediment,Urine 2+ /lpf; Bacteria,Urine 4+ /lpf; WBC,Urine Occasional #/hpf (0-3)
[2023-04-16 12:49] LABS: Creatinine,Urine Random 131 mg/dL (Not Estab.)
[2023-04-16 13:08] LABS: Alanine Aminotransferase 26 U/L (12-78); Albumin Level 4.4 g/dl (3.5-5.0); Albumin/Globulin Ratio 1.7 (1.1-1.8); Alkaline Phosphatase 65 U/L (38-126); Anion Gap 12.2 mEq/L (5-15); Aspartate Amino Transferase 36 U/L (17-59); Bilirubin,Total 0.3 mg/dl (0.2-1.3); Blood Urea Nitrogen 31 mg/dl (9-20); Calcium 9.6 mg/dl (8.4-10.2); Carbon Dioxide 30 mmol/L (22.0-30.0); Chloride 102 mmol/L (98-107); Estimated Glomerular Filt Rate 73 ml/min (>60); GFR (African American) 89 ML/MIN (>60); Globulin 2.6 g/dL (1.3-3.2); Glucose 98 mg/dl (74-100); Potassium 4.2 mmoL/L (3.5-5.1); Sodium 140 mmol/L (136-145); Uric Acid 3.3 mg/dl (3.5-8.5)
[2023-04-16 13:22] LABS: 25-OH Vitamin D, Total 71.3 ng/mL (30-100)
== END ==
PROVIDERS: PCP Family Medicine; Visit Provider Internal Medicine Nephrology
DX: N20.0 Calculus of kidney (principal); E55.9 Vitamin D deficiency, unspecified; N18.2 Chronic kidney disease, stage 2 (mild); E78.5 Hyperlipidemia, unspecified; N40.0 Benign prostatic hyperplasia without lower urinary tract symptoms; C83.30 Diffuse large B-cell lymphoma, unspecified site
CPT/HCPCS: 36415; 80053; 81001; 82306; 82570; 84155; 84550; 85014; 85018; 85048; 85049; 87086

== ENCOUNTER 2023-10-29 13:08 | Outpatient (CLI) | payer MEDICARE, OTHER, SELFPAY ==
[2023-10-29 13:21] LABS: Microscopic, Urine URINE MICROSCOPIC (MICROSCOPIC)
[2023-10-29 13:42] LABS: Appearance,Urine CLEAR (Clear); Bilirubin,Urine Negative (Negative); Blood, Urine Negative (Negative); Color,Urine YELLOW (Yellow); Glucose,Urine (UA) Negative (Negative); Ketones,Urine TRACE (Negative); Leukocyte Esterase,Urine TRACE (Negative); Nitrate,Urine Negative (Negative); PH,Urine 7.5 (5.0-8.5); Protein,Urine Negative (Negative); Specific Gravity, Urine 1.015 (1.005-1.030)
[2023-10-29 14:03] LABS: Hemoglobin 14.1 g/dL (14.1-18.0); Mean Corpuscular HGB Conc 33.5 g/dL (31.8-35.4); Mean Corpuscular Hemoglobin 32.1 pg (27.0-31.2); Mean Corpuscular Volume 95.7 fl (80-94); Platelet Count 170 K/mm3 (142-424); Red Blood Count 4.39 M/mm3 (4.60-6.20); Red Cell Distribution Width 14.1 % (11.5-17.5); White Blood Count 5.7 K/mm3 (4.8-10.8)
[2023-10-29 14:04] LABS: Alanine Aminotransferase 30 U/L (12-78); Albumin Level 4.2 g/dl (3.5-5.0); Albumin/Globulin Ratio 1.6 (1.1-1.8); Alkaline Phosphatase 51 U/L (38-126); Anion Gap 13.3 mEq/L (5-15); Aspartate Amino Transferase 46 U/L (17-59); Bilirubin,Total 0.8 mg/dl (0.2-1.3); Blood Urea Nitrogen 26 mg/dl (9-20); Calcium 9.6 mg/dl (8.4-10.2); Carbon Dioxide 29 mmol/L (22.0-30.0); Chloride 101 mmol/L (98-107); Estimated Glomerular Filt Rate 95 ml/min (>60); GFR (African American) 115 ML/MIN (>60); Globulin 2.6 g/dL (1.3-3.2); Glucose 99 mg/dl (74-100); Potassium 4.3 mmoL/L (3.5-5.1); Sodium 139 mmol/L (136-145); Total Protein,Serum 6.8 g/dl (6.3-8.2)
[2023-10-29 14:20] LABS: 25-OH Vitamin D, Total 72.6 ng/mL (30-100)
[2023-10-29 14:31] LABS: Amorphous Sediment,Urine Trace /lpf; Bacteria,Urine Trace /lpf; Squamous Epithelial Cell,Urine Occasional #/hpf (0-5); WBC,Urine Occasional #/hpf (0-3)
== END 2023-10-29 23:59 | disposition home or self-care (01) ==
LOC: LAB 13:09
PROVIDERS: PCP Family Medicine; Visit Provider Internal Medicine Nephrology
DX: N20.0 Calculus of kidney (principal); N18.2 Chronic kidney disease, stage 2 (mild); E55.9 Vitamin D deficiency, unspecified; E78.5 Hyperlipidemia, unspecified; N40.0 Benign prostatic hyperplasia without lower urinary tract symptoms; C83.30 Diffuse large B-cell lymphoma, unspecified site; Z68.24 Body mass index [BMI] 24.0-24.9, adult
CPT/HCPCS: 36415; 80053; 81001; 82306; 85014; 85018; 85048; 85049

== ENCOUNTER 2023-11-10 07:44 | Emergency (ER) | payer MEDICARE, OTHER, SELFPAY ==
[2023-11-10 07:45] VITALS: BP 139/81; PULSE 71; RESP 16; TEMP 36.6; O2SAT 98; BMI 25.2
--- NOTE | 2023-11-10 07:46 | HMH.EDGENADL ---
Discharge Plan Disposition Patient Disposition: Home, Self-Care Condition: Good Prescriptions Prescriptions: New cephalexin 500 mg capsule 500 mg PO Q6H 5 Days Qty: 20 0RF No Action Latuda 20 mg tablet 20 mg PO DAILY Rx Instructions: must administer with food (at least 350 calories) methylphenidate HCl 10 mg tablet 10 mg PO BID esomeprazole magnesium 40 mg capsule,delayed release(DR/EC) 40 mg PO DAILYP PRN (Reason: gerd) glucosamine-chondroitin [Osteo Bi-Flex] 250-200 mg tablet 2 tab PO QPC sildenafil 50 mg tablet 50 mg PO PRN Patient Comments: TAKE 1 TABLET BY MOUTH NEEDED DIRECTED dextroamphetamine-amphetamine 10 mg tablet 10 mg PO TID Patient Comments: TAKE 1 TABLET BY MOUTH THREE TIMES DAILY atorvastatin 40 MG tablet 40 mg PO DAILY chlorthalidone 25 MG tablet 12.5 mg PO DAILY aspirin 81 MG tablet,delayed release (DR/EC) 81 mg PO DAILY allopurinol 300 MG tablet 300 mg PO DAILY coenzyme Q10 100 MG capsule 400 mg PO DAILY omega-3 fatty acids 300 MG capsule 1,000 mg PO DAILY lysine HCl 500 MG tablet 1,000 mg PO DAILY potassium citrate 10 mEq (1,080 mg) tablet extended release See Rx Instructions PO BID Rx Instructions: 15meg orally twice a day; Referrals Follow up/Referrals: Olga Herndon MD [Primary Care Provider] - See instructions Activity Restrictions/Add. Instructions Additional Instructions/Restrictions: Please take the antibiotics as directed, please monitor your wound, please return if it is not improving in approximately 48 hours, please return with any new or worsening symptoms. Clinical Impressions Clinical Impression: Cellulitis Instructions Patient Instructions: Cellulitis Discharge ED Provider: Jj Brooks General Adult HPI General Chief complaint: Skin/Abscess/Foreign Body Stated complaint: possible spider bite on right hip Time Seen by Provider: 11/10/23 07:46 History of Present Illness HPI narrative: The patient, a male, presents with a chief complaint of a spot on his leg or bottom, initially thought to be a chigger bite due to its small size and lack of itchiness. However, the spot has since evolved, resembling a brown recluse spider bite, characterized by swelling and the emergence of pustules. The condition started on Sunday, and the patient noticed it after working outdoors with a chainsaw, during which he applied bug repellent and took preventive hygiene measures. He reports experiencing a deep pain under his hip, which woke him up in the middle of the night following the day he worked outside. He also mentions a headache, although he notes that headaches are not uncommon for him. He denies having any systemic symptoms such as fever, chills, or vomiting. Additionally, the patient acknowledges the presence of poison wilver in the area where he was working and his sensitivity to it, but he confirms that the current lesion is painful rather than itchy. The patient has a significant medical history of lymphoma, from which he has been cancer-free for over five years. He also mentions a small, non-itchy chigger bite on his leg, distinct from the primary lesion of concern. Regarding medications, the patient reports a history of penicillin allergy in his twenties but has tolerated amoxicillin without issues in the subsequent years. He also has allergies to bluegrass and pollen. Please note that above description of symptoms, in this electronic medical record under categorization of recalled from ER triage doctor by RN are reflective of an initial nursing assessment, however, is not reflective of my full history and physical exam that was personally taken and clarified. Consequentially, this preceding description of symptoms, which may include the patient's categorized chief complaint in the EMR, do not reflect my personal clinical impression, and the ultimate description of history of present illness and patient stated complaints should be deferred to this section of the note. Unless stated otherwise or congruent with this section of the note, additional signs, symptoms, or incongruence should be interpreted as inaccurate with my clinical impression. Related Data Home Medications Medication Instructions Recorded Confirmed allopurinol 300 mg tablet 300 mg PO DAILY gout 02/04/18 10/11/23 aspirin 81 mg tablet,delayed 81 mg PO DAILY Heart disease 02/04/18 10/11/23 release atorvastatin 40 mg tablet 40 mg PO DAILY Cholesterol 02/04/18 10/11/23 chlorthalidone 25 mg tablet 12.5 mg PO DAILY . 02/04/18 10/11/23 coenzyme Q10 100 mg capsule 400 mg PO DAILY Supplement 02/04/18 10/11/23 lysine HCl 500 mg tablet 1,000 mg PO DAILY Supplement 02/04/18 10/11/23 omega-3 fatty acids 300 mg capsule 1,000 mg PO DAILY Supplement 02/04/18 10/11/23 lurasidone 20 mg tablet (Latuda) 20 mg PO DAILY . 12/23/19 10/11/23 esomeprazole magnesium 40 mg 40 mg PO DAILYP PRN gerd 06/06/21 10/11/23 capsule,delayed release glucosamine-chondroitin 250 mg-200 2 tab PO QPC . 06/06/21 10/11/23 mg tablet (Osteo Bi-Flex) methylphenidate HCl 10 mg tablet 10 mg PO BID . 06/06/21 10/11/23 dextroamphetamine-amphetamine 10 10 mg PO TID 10/11/23 10/11/23 mg tablet potassium citrate 10 mEq (1,080 See Rx Instructions PO BID 10/11/23 10/11/23 mg) tablet,extended release Supplement sildenafil 50 mg tablet 50 mg PO PRN 10/11/23 10/11/23 Previous Rx's Medication Instructions Recorded cephalexin 500 mg capsule 500 mg PO Q6H 5 days #20 caps 11/10/23 Allergies Allergy/AdvReac Type Severity Reaction Status Date / Time No Known Allergies Allergy Verified 05/03/23 15:54 [facility] Disclaimer: The information contained in this section may have been updated after the patient was seen, as this information can be updated by other users. Medical History RLS (restless legs syndrome) Bipolar disorder ADHD History of lymphoma History of tumor History of kidney stones Surgical History History of medial meniscus repair of right knee History of hernia surgery History of tonsillectomy Family History Other Cancer Coronary artery disease Diabetes Social History Smoking Status: Never smoker alcohol intake: never substance use type: denies use current occupational status: other Travel in the last 8 weeks: None household members: spouse housing: house caffeine: Yes ROS Obtained: Yes other As per HPI Physical Exam General General appearance: alert and in no apparent distress Head Head exam: atraumatic and normocephalic Eye Eye exam: Present normal appearance Neck Neck exam: Present normal inspection Chest Chest inspection: Present normal inspection and symmetric chest wall rise Respiratory Respiratory exam: Present normal lung sounds bilaterally; Absent respiratory distress Cardiovascular Cardiovascular exam: Present regular rate and normal rhythm Abdominal Exam Abdominal exam: Present soft Neurological Exam Neurological exam: Present alert and oriented X3 Psychiatric Psychiatric exam: Present normal affect and normal mood Skin Skin exam: Present warm and dry Other Other exam information: Right gluteal vesicular lesion with surrounding erythema, edema, no underlying fluctuance or induration, no crepitus, mildly tender to palpation Medical Decision Making Medical Records Medical records reviewed: Yes I reviewed the patient's medical records. Beau Inquiry Pt receiving controlled substance: No Vital Signs: 11/10/23 07:45 11/10/23 08:08 Temperature 97.9 F 98.8 F Temperature Source Oral Oral Pulse Rate 79 Pulse Rate [Right] 71 Respiratory Rate 16 20 Blood Pressure 139/81 Blood Pressure [Right Arm] 139/81 Blood Pressure Mean [Right Arm] 100 Blood Pressure Source Automatic Cuff Blood Pressure Position Sitting 02 Sat by Pulse Oximetry 98 Oxygen Delivery Method Room Air Room Air Medical Decision Narrative: Patient with history and exam per above presenting for evaluation of skin lesion Diagnoses considered include cellulitis, abscess, bug bite, poison wilver, contact dermatitis, no clinical features suggestive of Arturo's gangrene ED workup and treatment included: [id number] ultrasound revealing no underlying abscess My clinical impression at this time is most consistent with cellulitis, due to unspecified precipitant, for which patient was prescribed course of antibiotics and will follow-up with primary care provider. I discussed my clinical impression with patient and answered all questions. At this time, the evidence for any other entities in the differential is insufficient to warrant any further testing or ED observation. This was explained to the patient. The patient was advised that persistent or worsening symptoms require further evaluation. I confirmed the patient's understanding of this discussion. Critical Care Critical Care Time Critical Care Time: No
[2023-11-10 08:08] VITALS: BP 139/81; PULSE 79; RESP 20; TEMP 37.1; O2SAT 97
== END 2023-11-10 08:11 | disposition home or self-care (01) ==
PROVIDERS: Emergency Provider Emergency Medicine; PCP Family Medicine
DX: L03.317 Cellulitis of buttock (principal)
CPT/HCPCS: 99283

== ENCOUNTER 2023-11-29 06:18 | Outpatient (CLI) | payer MEDICARE, OTHER, SELFPAY ==
--- NOTE | 2023-11-29 | CT_ITS ---
FINAL REPORT TECHNIQUE: Axial images through the abdomen and pelvis were performed without contrast. This study was performed with techniques to keep radiation doses as low as reasonably achievable, (ALARA). Individualized dose reduction techniques using automated exposure control or adjustment of mA and/or kV according to the patient's size were employed. CLINICAL HISTORY: hematuria FINDINGS: ABDOMEN: The lung bases are clear. The heart size is normal. There is a 7 mm low-attenuation focus in the anterior liver dome which can not be accurately characterized without contrast, favor a cyst. The spleen is normal. No adrenal mass is identified. The aorta is normal in caliber. There is no significant free fluid or adenopathy. There are several bilateral less than 3 mm nonobstructing renal stones. There are bilateral low-attenuation renal masses measuring up to 2.5 cm on the right and 6.2 cm on the left. These can not be accurately characterized without contrast, may represent cysts. There is no hydronephrosis. PELVIS: The appendix is normal. There is sigmoid diverticulosis without evidence of diverticulitis. The urinary bladder is unremarkable. There is no significant free fluid or adenopathy. IMPRESSION: Bilateral nephrolithiasis. Bilateral renal masses as above. Recommend renal mass protocol CT. Reviewed, Interpreted and Dictated by Nilesh Perdomo III, MD Transcribed by Margarette Khalil Authenticated and [facility]
== END 2023-11-29 23:59 | disposition home or self-care (01) ==
LOC: RAD 06:19
PROVIDERS: PCP Family Medicine; Visit Provider Family Medicine
DX: R31.9 Hematuria, unspecified (principal)
CPT/HCPCS: 74176

== ENCOUNTER 2023-12-13 14:50 | Outpatient (CLI) | payer MEDICARE, OTHER, SELFPAY ==
[2023-12-13 15:21] LABS: Blood Urea Nitrogen 30 mg/dl (9-20); Estimated Glomerular Filt Rate 73 ml/min (>60); GFR (African American) 89 ML/MIN (>60)
== END 2023-12-13 23:59 | disposition home or self-care (01) ==
LOC: LAB 14:51
PROVIDERS: PCP Family Medicine; Visit Provider Family Medicine
DX: N20.0 Calculus of kidney (principal); R93.5 Abnormal findings on diagnostic imaging of other abdominal regions, including retroperitoneum
CPT/HCPCS: 36415; 82565; 84520

== ENCOUNTER 2023-12-14 06:11 | Outpatient (CLI) | payer MEDICARE, OTHER, SELFPAY ==
--- NOTE | 2023-12-14 | CT_ITS ---
FINAL REPORT TECHNIQUE: Axial images through the abdomen and pelvis were performed. This study was performed with techniques to keep radiation doses as low as reasonably achievable, (ALARA). Individualized dose reduction techniques using automated exposure control or adjustment of mA and/or kV according to the patient's size were employed. CLINICAL HISTORY: .renal mass COMPARISON: 11/29/2023 FINDINGS: Abdomen: Lung bases are clear. Liver has an unremarkable CT appearance, other than a small cyst in the anterior liver dome. The spleen, pancreas and adrenal glands are unremarkable. Precontrast imaging shows tiny nonobstructing bilateral renal stones. Postcontrast enhanced images reveal bilateral renal lesions consistent with benign cysts. There is a lesion in the mid right kidney that measures 25 mm in diameter, and another in the posterior left kidney measuring 67 mm. Neither of these enhance. No solid renal lesion is evident. No bowel obstruction or fluid collection is seen. Moderate fecal impaction is present. Pelvis: The appendix is normal in appearance. Pelvic bowel loops are unremarkable. No fluid collection or adenopathy is seen. There is mild enlargement of the prostate. IMPRESSION: Bilateral renal lesions are consistent with benign cysts as described. Precontrast enhanced images show tiny nonobstructing renal stones bilaterally. Reviewed, Interpreted and Dictated by Olga Morales MD Transcribed by Barbi Allan Authenticated and [facility]
[2023-12-14] MEDS: SODIUM CHLORIDE 0.9% 10ML SYR (RAD ONLY) 10 ML IV (07:03)
[2023-12-14] MEDS: IOPAMIDOL-370 (76%);100ML BOTTLE 75 ML IV (07:03)
== END 2023-12-14 23:59 | disposition home or self-care (01) ==
LOC: RAD 06:12
PROVIDERS: PCP Family Medicine; Visit Provider Family Medicine
DX: N20.0 Calculus of kidney (principal); R93.5 Abnormal findings on diagnostic imaging of other abdominal regions, including retroperitoneum
CPT/HCPCS: 74178; Q9967

== ENCOUNTER 2024-01-14 13:52 | Outpatient (CLI) | payer MEDICARE, OTHER, SELFPAY ==
[2024-01-14 14:02] LABS: Microscopic, Urine URINE MICROSCOPIC (MICROSCOPIC)
[2024-01-14 14:24] LABS: Hematocrit 40.3 % (42.0-52.0); Hemoglobin 14.1 g/dL (14.1-18.0); Mean Corpuscular Hemoglobin 34.3 pg (27.0-31.2); Platelet Count 177 K/mm3 (142-424); Red Blood Count 4.11 M/mm3 (4.60-6.20); Red Cell Distribution Width 14.2 % (11.5-17.5); White Blood Count 6.1 K/mm3 (4.8-10.8)
[2024-01-14 14:50] LABS: Alanine Aminotransferase 30 U/L (12-78); Albumin/Globulin Ratio 1.6 (1.1-1.8); Alkaline Phosphatase 61 U/L (38-126); Anion Gap 10.8 mEq/L (5-15); Aspartate Amino Transferase 32 U/L (17-59); Bilirubin,Total 0.4 mg/dl (0.2-1.3); Blood Urea Nitrogen 31 mg/dl (9-20); Calcium 9.6 mg/dl (8.4-10.2); Carbon Dioxide 29 mmol/L (22.0-30.0); Chloride 103 mmol/L (98-107); Estimated Glomerular Filt Rate 83 ml/min (>60); GFR (African American) 100 ML/MIN (>60); Globulin 2.5 g/dL (1.3-3.2); Glucose 101 mg/dl (74-100); Potassium 3.8 mmoL/L (3.5-5.1); Sodium 139 mmol/L (136-145); Total Protein,Serum 6.5 g/dl (6.3-8.2)
[2024-01-14 15:08] LABS: 25-OH Vitamin D, Total 68.8 ng/mL (30-100)
[2024-01-14 16:22] LABS: Appearance,Urine CLEAR (Clear); Bilirubin,Urine Negative (Negative); Blood, Urine Negative (Negative); Color,Urine YELLOW (Yellow); Glucose,Urine (UA) Negative (Negative); Ketones,Urine Negative (Negative); Leukocyte Esterase,Urine Negative (Negative); Nitrate,Urine Negative (Negative); Protein,Urine Negative (Negative); Specific Gravity, Urine 1.015 (1.005-1.030)
[2024-01-14 16:34] LABS: Bacteria,Urine Trace /lpf; Squamous Epithelial Cell,Urine Occasional #/hpf (0-5); WBC,Urine Occasional #/hpf (0-3)
== END 2024-01-14 23:59 | disposition home or self-care (01) ==
LOC: LAB 13:53
PROVIDERS: PCP Family Medicine; Visit Provider Internal Medicine Nephrology
DX: N20.0 Calculus of kidney (principal); E55.9 Vitamin D deficiency, unspecified
CPT/HCPCS: 36415; 80053; 81001; 82306; 85014; 85018; 85048; 85049

== ENCOUNTER 2024-04-04 06:56 | Day surgery (SDC) | payer MEDICARE, OTHER, SELFPAY ==
[2024-04-01 14:51] VITALS: BMI 24.8
[2024-04-04 07:14] VITALS: BP 111/65; PULSE 70; RESP 18; TEMP 36.9; O2SAT 94
[2024-04-04] MEDS: LIDOCAINE 2% UROJET 10ML 10 ML (08:09)
[2024-04-04] MEDS: 0.9 % SODIUM CHLORIDE 1000ML 1,000 ML 25 ML IV (08:09)
--- NOTE | 2024-04-04 08:11 | HMH.PROCNOTE ---
[facility] Procedure Note Date: 04/04/24 Time: 08:11 Procedure Note:: Chart review: Patient CT scan with and without infusion or 12/09 shows renal cysts and bilateral small nephrolithiasis. The patient's had 2 episodes of gross painless hematuria. Preop diagnosis hematuria Postop diagnosis hematuria Operative note: The patient was brought to the cystoscopy suite he was prepped and draped in the sterile usual sterile fashion. He underwent flexible cystoscopy. The anterior urethra was unremarkable. From the verumontanum the patient has grade 2 prostate obstruction from bilateral lobes. The bladder itself is free of stone tumor hemorrhage or infection. There is minimal trabeculation. The ureteral orifice ease are normal bilaterally with clear reflux urine. Patient tolerated the procedure well.
[2024-04-04 08:13] VITALS: BP 110/67; PULSE 60; RESP 18; TEMP 36.9; O2SAT 94
== END 2024-04-04 08:20 | disposition home or self-care (01) ==
PROVIDERS: PCP Family Medicine; Visit Provider Urology
PROC: 0TJB8ZZ Inspection of Bladder, Via Natural or Artificial Opening Endoscopic (ICD-10-PCS; CPT 52000; principal; 2024-04-04 08:15)
DX: R31.9 Hematuria, unspecified (principal); N40.0 Benign prostatic hyperplasia without lower urinary tract symptoms; N28.1 Cyst of kidney, acquired; N20.0 Calculus of kidney
CPT/HCPCS: 52000; J7030

== ENCOUNTER 2024-05-13 11:53 | Outpatient (CLI) | payer MEDICARE, OTHER, SELFPAY ==
[2024-05-13 12:08] LABS: Microscopic, Urine URINE MICROSCOPIC (MICROSCOPIC)
[2024-05-13 12:26] LABS: Hematocrit 40.8 % (42.0-52.0); Hemoglobin 14.2 g/dL (14.1-18.0); Mean Corpuscular HGB Conc 34.8 g/dL (31.8-35.4); Mean Corpuscular Hemoglobin 32.5 pg (27.0-31.2); Mean Corpuscular Volume 93.4 fl (80-94); Platelet Count 179 K/mm3 (142-424); Red Blood Count 4.37 M/mm3 (4.60-6.20); Red Cell Distribution Width 13.7 % (11.5-17.5); White Blood Count 5.6 K/mm3 (4.8-10.8)
[2024-05-13 13:22] LABS: Appearance,Urine CLEAR (Clear); Bilirubin,Urine Negative (Negative); Blood, Urine Negative (Negative); Color,Urine YELLOW (Yellow); Glucose,Urine (UA) Negative (Negative); Ketones,Urine Negative (Negative); Leukocyte Esterase,Urine Negative (Negative); Nitrate,Urine Negative (Negative); Protein,Urine Negative (Negative); Specific Gravity, Urine 1.015 (1.005-1.030); Urobilinogen,Urine 0.2 EU/dl (0.2)
[2024-05-13 13:53] LABS: Bacteria,Urine Trace /lpf; Squamous Epithelial Cell,Urine Occasional #/hpf (0-5)
[2024-05-13 13:59] LABS: Alanine Aminotransferase 21 U/L (12-78); Albumin Level 4.5 g/dl (3.5-5.0); Albumin/Globulin Ratio 2.1 (1.1-1.8); Alkaline Phosphatase 58 U/L (38-126); Anion Gap 12.2 mEq/L (5-15); Aspartate Amino Transferase 30 U/L (17-59); Bilirubin,Total 0.7 mg/dl (0.2-1.3); Blood Urea Nitrogen 31 mg/dl (9-20); Calcium 9.6 mg/dl (8.4-10.2); Carbon Dioxide 30 mmol/L (22.0-30.0); Chloride 102 mmol/L (98-107); Estimated Glomerular Filt Rate 82 ml/min (>60); GFR (African American) 100 ML/MIN (>60); Globulin 2.1 g/dL (1.3-3.2); Glucose 82 mg/dl (74-100); Potassium 4.2 mmoL/L (3.5-5.1); Sodium 140 mmol/L (136-145); Total Protein,Serum 6.6 g/dl (6.3-8.2)
[2024-05-13 14:09] LABS: 25-OH Vitamin D, Total 52.1 ng/mL (30-100)
== END 2024-05-13 23:59 | disposition home or self-care (01) ==
LOC: LAB 11:58
PROVIDERS: PCP Psychiatry & Neurology Sleep Medicine; Visit Provider Internal Medicine Nephrology
DX: N20.0 Calculus of kidney (principal); E55.9 Vitamin D deficiency, unspecified; N40.0 Benign prostatic hyperplasia without lower urinary tract symptoms; N18.2 Chronic kidney disease, stage 2 (mild); E78.5 Hyperlipidemia, unspecified; C83.30 Diffuse large B-cell lymphoma, unspecified site
CPT/HCPCS: 36415; 80053; 81001; 82306; 85027

== ENCOUNTER 2024-12-18 12:43 | Outpatient (CLI) | payer MEDICARE, OTHER, SELFPAY ==
--- OUTSIDE RECORDS SUMMARY | 2024-04-14 07:15 | XMS_ITS ---
[facility] Organization [facility] Address [address] [facility] [address] [place] [id number] Care Team Providers Care Top Frame Fitter Name Role Phone Elsa Herndon Primary Care Provider [phone] Allergies No Known Allergies Results Component Value Reference Range Notes P-Comprehensive Metabolic Pa ruth (CMP) Reviewed date:04/15/2024 05:22:33 PM Interpretation:bun 24 Performing Lab: Notes/Report: Test performed by [facility] [address] [place] [address] , [address], [place] [address] Hector Fisehr MD, Senior Ux Designer CLIA: [id number] Sodium 142 135-145 mmol/L Potassium 3.8 3.5-5.3 mmol/L Chloride 104 97-108 mmol/L CO2 28 22-32 mmol/L Glucose 91 65-99 mg/dL BUN 24 8-23 mg/dL Creatinine 1.03 0.70-1.30 mg/dL Calcium 10.1 8.6-10.4 mg/dL eGFR by Creatinine 76 >59 mL/min/1.73m2 Protein 6.9 6.0-8.3 g/dL Albumin 4.6 3.5-5.3 g/dL Alkaline Phosphatase 75 40-129 IU/L ALT (SGPT) 16 <5-55 IU/L AST (SGOT) 22 <5-46 IU/L Bilirubin, Total 0.7 <0.2-1.2 mg/dL A/G Ratio 2.0 1.1-2.5 REASON FOR VISIT 4 months, Needs labs & flu vaccine Medications Medication SIG (Take, Route, Frequency, Duration) Notes Start Date End Date Status Atorvastatin Calcium 40 MG 1 tab(s) oral ly once a day Active Sildenafil Citrate 50 MG 1 tablet as nee ded Orally as directed; Duration: 30 day(s) 07/16/2023 Active Potassium Citrate ER 15 MEQ (1620 MG) 2 tab(s) orally bid Active Fish Oil 1000 MG 1 cap(s) orally 2 ti mes a day Active Allopurinol 300 MG 1 tab(s) Orally qd Active Esomeprazole Magnesium 40 MG 1 cap(s) or ally once a day as needed 08/10/2020 Active PreserVision AREDS 2 - 1 cap(s) orally o nce a day; Duration: 30 day(s) Active B-12 1000 MCG 1 tab(s) orally once a day; Duration: 30 day(s) Active Aspirin 81 MG 1 tab(s) orally once a day; Duration: 30 day(s) Active Chlorthalidone 25 MG 1/2 tablet Orally o nce a day Active Latuda 20 MG 1 tablet Orally Once a day Active Lysine 1000 MG as directed Orally Active Amphetamine-Dextroamphetamin e 10 MG 1 tablet Orally three times a day Active Osteo Bi-Flex One Per Day - 1 capsule Or ally twice a day Active Melatonin 5 MG 1 tablet in the even ing Orally Once a day; Duration: 30 day(s) Active Tadalafil 5 MG 1 tablet as needed Orally Once a day; Duration: 30 day(s) Active Vital Signs Blood pressure systolic 104 mm Hg 04/14/20 24 Blood pressure diastolic 76 mm Hg 024 Heart Rate 69 /min 04/14/2024 Height 67 in 04/14/2024 Weight 155.8 lbs 04/14/2024 BMI 24.40 kg/m2 04/14/2024 Encounters Encounter Location Date Provider Diagnosis [facility] [address] [facility] [address] [place], [place] [id number] 04/14/2024 Elsa Herndon Essential (primary) hypertension I10 ; Depression with anxiety F41.8 ; MICHAEL (obstructive sleep apnea) G47.33 ; 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 and Encounter for immunization Z23 Assessments Encounter Date Diagnosis (ICD Code) Assessment Notes Treatment Notes Treatment Clinical Notes Section Notes 04/14/2024 Essential (primary) hypertension (ICD-10 - I10) 04/14/2024 Depression with anxiety (ICD-10 - F41.8) 04/14/2024 MICHAEL (obstructive sleep apnea) (ICD-10 - G47.33) 04/14/2024 Arthropathy of right knee (ICD-10 - M17.11) 04/14/2024 Encounter for immunization (ICD-10 - Z23) Plan Of Treatment Next Appt Details Follow Up: 6 Months, Reason: Provider Name:Elsa Kahn er, 04/20/2025 11:45:00 AM, [address], [address], [place], [place], [id number], Progress Notes * DIANA SZYMANSKIDOB: [birth year] (74 yo M)Acc No.[id number]:04/14/2024 Progress Notes Patient: DIANA ROSADO Provider: Elsa Herndon M.D. :1950 A ge:74 Y S ex:Male Date:04/14/2024 Address:[address] [place], [place] [phone] Subjective: * Chief Complaints: * 1 . 4 months. 2. Needs labs & flu vaccine. * HPI: C ardiology: The patient is here for a check up on Hypertension and Hyperlipidemia. Pt states. C onstitutional: Plans immunizations at pharmacy. * ROS: D ERMATOLOGY: no R soo. n o H jay. G ASTROENTEROLOGY: no N ausea. n o V omiting. n o D iarrhea.? U ROLOGY: no D ifficulty urinating. n o B lood in urine. * Medical History: A DHD, Kidney Stones, Depression, Large B cell Lymphoma, Covid vaccine x2 (2020). * Surgical History: b roken nose , benign cyst on left arm , meniscus repair right knee, [facility] 2011, tonsillectomy , dental work . * Family History: F ather: 82 yrs, CHF. M other: alive 96 yrs, high cholestrol. one brother due to breast cancer and eye cancer. * Social History: C URRENT TOBACCO USE: No . C affeine: yes, frequency:. Home smoke detector use: yes. Alcohol: No. * Medications: T aking Amphetamine-Dextroamphetamine 10 MG Tablet 1 tablet Orally three times a day , Taking Tadalafil 5 MG Tablet 1 tablet as needed Orally Once a day , Taking Melatonin 5 MG Tablet 1 tablet in the evening Orally Once a day , Taking Osteo Bi-Flex One Per Day - Tablet 1 capsule Orally twice a day , Taking Lysine 1000 MG Tablet as directed Orally , Taking Latuda 20 MG Tablet 1 tablet Orally Once a day , Taking Chlorthalidone 25 MG Tablet 1/2 tablet Orally once a day , Taking Aspirin 81 MG Tablet Delayed Release 1 tab(s) orally once a day , Taking B-12 1000 MCG Tablet 1 tab(s) orally once a day , Taking Allopurinol 300 MG Tablet 1 tab(s) Orally qd , Taking Fish Oil 1000 MG Capsule 1 cap(s) orally 2 times a day , Taking Potassium Citrate ER 15 MEQ (1620 MG) Tablet Extended Release 2 tab(s) orally bid , Taking PreserVision AREDS 2 - Capsule 1 cap(s) orally once a day , Taking Esomeprazole Magnesium 40 MG Capsule Delayed Release 1 cap(s) orally once a day as needed , Taking Sildenafil Citrate 50 MG Tablet 1 tablet as needed Orally as directed , Taking Atorvastatin Calcium 40 MG Tablet 1 tab(s) orally once a day , Discontinued Silvadene 1 % Cream 1 application Externally Once a day , Discontinued Paxlovid (300/100) 20 x 150 MG & 10 x 100MG Tablet Therapy Pack 3 tablets Orally Twice a day , Discontinued Cipro 500 MG Tablet 1 tablet Orally every 12 hrs , Discontinued Methylphenidate HCl 10 MG Tablet 1.5 tab orally once daily , Discontinued Remeron 30 MG Tablet 1 tab(s) orally once a day (at bedtime) , Discontinued buPROPion HCl ER (SR) 150 MG Tablet Extended Release 12 Hour 1 tab(s) orally once daily , Discontinued Ritalin 10 MG Tablet 1.5 tabs orally tid , Discontinued Cymbalta 30 MG Capsule Delayed Release Particles 1 cap(s) orally once a day , Discontinued ALLER-PRABHJOT , Notes to Pharmacist: *Please review for potential replacement for e-prescription and drug interaction check*, Discontinued Paxlovid (150/100) 10 x 150 MG & 10 x 100MG Tablet Therapy Pack as directed , Discontinued Multivitamin 1 TAB(S) ORALLY ONCE A DAY , Notes to Pharmacist: *Please review and pick correct strength-formulation from Medispan options. If intended option is not shown, discontinue and re-order from Quick Search*, Discontinued Famotidine 40 MG Tablet 1 tab(s) orally once a day (at bedtime) , Discontinued Melatonin 10 MG Capsule 1 cap(s) orally once a day (at bedtime) , Medication List reviewed and reconciled with the patient * Allergies: N .K.D.A. Objective: * Vitals: W t:155.8, Temp:98.3, BP:104/76, HR:69, Nurse:LINDA, Ht: 67, BMI:24.40. * Examination: G eneral Examination: General Appearance: N AD. H EENT: u nremarkable.?Oral cavity: n o lesions, mucosa moist and WNL, no erythema. N cedric: s upple, no lymphadenopathy. C hest: n ormal shape and expansion. H eart: R SR. L ungs: c lear to auscultation. N eurologic Exam: I ntact, gait normal. S kin: n ormal, no rash.?Peripheral pulses: n ormal. B ack: normal, mild dorsal kyphosis. E xtremities: n o leg edema, osteoarthritic changes of the knees, right severe. Assessment: * Assessment: 1. E ssential (primary) hypertension - I10 (Primary) 2 . D epression with anxiety - F41.8 3 . O SA (obstructive sleep apnea) - G47.33 4 .?Arthropathy of right knee - M17.11 5 . E ncounter for immunization - Z23? Plan: * Treatment: Value Reference Range A /G Ratio 2.0 1.1-2.5 - * A lbumin 4.6 3.5-5.3 - g/dL * A lkaline Phosphatase 75 40-129 - IU/L * A LT (SGPT) 16 <5-55 - IU/L * A ST (SGOT) 22 <5-46 - IU/L * B ilirubin, Total 0.7 <0.2-1.2 - mg/dL * B UN 24 H 8-23 - mg/dL * C alcium 10.1 8.6-10.4 - mg/dL * C hloride 104 97-108 - mmol/L * C O2 28 22-32 - mmol/L * C reatinine 1.03 0.70-1.30 - mg/dL * G lucose 91 65-99 - mg/dL * P otassium 3.8 3.5-5.3 - mmol/L * S odium 142 135-145 - mmol/L * P rotein 6.9 6.0-8.3 - g/dL * e GFR by Creatinine 76 >59 - mL/min/1.73m2 * April Beltran 04/15/2024 5:2 2:23 PM >See phone encounter * Follow Up: 6 Months * Images: Billing Information: * Visit Code: 54533 Office Visit, Est Pt., Level 4. * Procedure Codes: * Electronic signature of Elsa Herndon MD on 12/18/2024 at 12:46 PM EDT Sign off status: Pending * Provider: Elsa Herndon M.D. Date: Generated for Marilyn russell/[place]/eTransmitting on: 0 12/18/2024 12:46 PM EDT History and Physical Notes * Examination Category Sub-Category Detail Notes Category Not es General Examination HEENT: unremarkable Heart: RSR Lungs: clear to auscultatio n Extremities: no leg edema, osteoa rthritic changes of the knees, right severe General Appearance: NAD Skin: normal, no rash Neurologic Exam: Intact, gait normal Neck: supple, no lymphaden opathy Oral cavity: no lesions, mucosa m oist and WNL, no erythema Peripheral pulses: normal Back: normal, mild dorsal kyphosis Chest: normal shape and exp ansion
--- OUTSIDE RECORDS SUMMARY | 2024-12-11 05:15 | XMS_ITS ---
[facility] Address [address] [place] [id number] Care Team Providers Care Pouncing Lathe Operator Name Role Phone Elsa Herndon Primary Care Provider VillanovaPortillo sy Unavailable [phone] Allergies No Known Allergies REASON FOR VISIT bug bite Medications Medication SIG (Take, Route, Frequency, Duration) Notes Start Date End Date Status Sildenafil Citrate 50 MG 1 tablet as nee ded Orally as directed; Duration: 30 day(s) 07/16/2023 Active Atorvastatin Calcium 40 MG 1 tab(s) oral ly once a day; Duration: 90 days Active Amphetamine-Dextroamphetamin e 10 MG 1 tablet Orally three times a day Active Tadalafil 5 MG 1 tablet as needed Orally Once a day; Duration: 30 day(s) Active Cephalexin 500 MG 1 capsule Orally twi ce a day; Duration: 7 days 12/11/2024 Active Allopurinol 300 MG 1 tab(s) Orally qd Active Fish Oil 1000 MG 1 cap(s) orally 2 ti mes a day Active Potassium Citrate ER 15 MEQ (1620 MG) 2 tab(s) orally bid Active PreserVision AREDS 2 - 1 cap(s) orally o nce a day; Duration: 30 day(s) Active Lysine 1000 MG as directed Orally Active Latuda 20 MG 1 tablet Orally Once a day Active Chlorthalidone 25 MG 1/2 tablet Orally o nce a day Active Aspirin 81 MG 1 tab(s) orally once a day; Duration: 30 day(s) Active B-12 1000 MCG 1 tab(s) orally once a day; Duration: 30 day(s) Active Melatonin 5 MG 1 tablet in the even ing Orally Once a day; Duration: 30 day(s) Active Osteo Bi-Flex One Per Day - 1 capsule Or ally twice a day Active Vital Signs Blood pressure systolic 110 mm Hg 12/12/19 25 Blood pressure diastolic 70 mm Hg 025 Heart Rate 81 /min 12/11/2024 Height 67 in 12/11/2024 Weight 147 lbs 12/11/2024 BMI 23.02 kg/m2 12/11/2024 Encounters Encounter Location Date Provider Diagnosis [facility] [address] [facility] [address] [place], [place] [id number] 12/11/2024 Portillo Nelson Insect bite (nonvenomous) of lower back and pelvis, initial encounter S30.860A and Bitten or stung by nonvenomous insect and other nonvenomous arthropods, initial encounter W57.XXXA Assessments Encounter Date Diagnosis (ICD Code) Assessment Notes Treatment Notes Treatment Clinical Notes Section Notes 12/11/2024 Insect bite (nonvenomous) of lower back and pelvis, initial encounter (ICD-10 - S30.860A) 12/11/2024 Bitten or stung by nonvenomous insect and other nonvenomous arthropods, initial encounter (ICD-10 - W57.XXXA) Plan Of Treatment Medication Medication Name Sig Start Date Stop Date Notes Cephalexin 500 MG 1 capsule Orally twi ce a day; Duration: 7 days 12/11/2024 Next Appt Details Follow Up: via phone to repo rt progress, Reason: Provider Name:Elsa Kahn , 04/20/2025 11:45:00 AM, [address], [address], [place], [place], [id number], Progress Notes * DIANA SZYMANSKIDOB: [birth year] (74 yo M)Acc No.[id number]:12/11/2024 Progress Notes Patient: DIANA ROSADO Provider: Marixa Nelson M.D. :1950 A ge:74 Y S ex:Male Date:12/11/2024 Address:[address] [facility] Pcp:Elsa Herndon Subjective: * Chief Complaints: * 1 . Bug bite. * HPI: D ermatology: 74 year old male presents with c/o bug bites P t complains of 2 spider bites on rt upper thigh about 5 days ago. Pt states that bites are nasty looking . Pt states there are multiple white spots surrounded by red tissue . * ROS: D ERMATOLOGY: no R soo. n o H jay. G ASTROENTEROLOGY: no N ausea. n o V omiting. U ROLOGY: no D ifficulty urinating. n o B lood in urine. * Medical History: A DHD, Kidney Stones, Depression, Large B cell Lymphoma, Covid vaccine x2 (2020). * Surgical History: b roken nose , benign cyst on left arm , meniscus repair right knee, [facility] 2011, tonsillectomy , dental work , colonoscopy, [facility] 2018. * Hospitalization/Major Diagno stic Procedure: D enies Past Hospitalization. * Family History: F ather: 82 yrs, CHF. M other: alive 96 yrs, high cholestrol. one brother due to breast cancer and eye cancer. * Social History: C URRENT TOBACCO USE: No . C affeine: yes. Home smoke detector use: yes. Alcohol: No. [...] cap(s) orally once a day , Taking Sildenafil Citrate 50 MG Tablet 1 tablet as needed Orally as directed , Taking Atorvastatin Calcium 40 MG Tablet 1 tab(s) orally once a day , Discontinued Esomeprazole Magnesium 40 MG Capsule Delayed Release 1 cap(s) orally once a day as needed , Medication List reviewed and reconciled with the patient * Allergies: N .K.D.A. Objective: * Vitals: W t: 147, Temp: 98.0, BP: 110/70, HR: 81, Nurse: patrick, Ht: 67, BMI:23.02. * Examination: G eneral Examination: General Appearance: N AD. S kin: m edial right buttocks with 2 reddened areas of skin with a small central bite wound, no draiange. ? Assessment: * Assessment: 1. I nsect bite (nonvenomous) of lower back and pelvis, initial encounter - S30.860A (Primary)? 2. B itten or stung by nonvenomous insect and other nonvenomous arthropods, initial encounter - W57.XXXA Plan: * Treatment: * Procedure Codes: G 2211 Complex e/m visit add on * Follow Up: v ia phone to report progress * Images: Billing Information: * Visit Code: 21188 Office Visit, Est Pt., Level 3. * Procedure Codes: G2211 Complex e/m visit add on. * Electronic signature of Olga Nelson MD on 12/18/2024 at 12:47 PM EDT Sign off status: Pending * Provider: Marixa Nelson M.D. Date: 0 12/11/2024 Generated for Marilyn russell/Oneida/Noahitting on: 0 12/18/2024 12:47 PM EDT History and Physical Notes * HPI (History of Present Illness) Category Sub-Category Detail Notes Category Not es Dermatology bug bites Pt complains of 2 spider bites on rt upper thigh about 5 days ago. Pt states that bites are nasty looking . Pt states there are multiple white spots surrounded by red tissue Examination Category Sub-Category Detail Notes Category Not es General Examination General Appearance: NAD Skin: medial right buttock s with 2 reddened areas of skin with a small central bite wound, no draiange
--- OUTSIDE RECORDS SUMMARY | 2024-12-18 12:46 | XMS_ITS | Clinical Summary ---
Author Organization [facility] Address [address] [place] [address] Care Team Providers Care Global Cto Name Role Phone Sudhir Herndon MD Primary Care Provider [phone] Source Comments This information has been disclosed to you from confidential records protectedfrom disclosure by state law. You shall make no further disclosure of thisinformation without the specific, written, and informed release of theindividual to whom it pertains, or as otherwise permitted by law. A generalauthorization for the release of medical or other information is not sufficientfor the purposes of therelease of HIV test results or diagnoses. [id number] Allergies Active Allergy Reactions Criticality Noted Date Comments Pollen Extracts Other (See Comments) Low 01/18/2017 Eyes crusty, dry nose congestion Trichophyton Mentagrophytes Allergenic Extract 01/05/2017 Medications coenzyme Q10 10 mg capsule Take 200 mg by mouth daily. Active omega 8-xff-obz-fish oil (FISH OIL) 1,000 (120-180) mg Cap Take 1 capsule by mouth daily. Active mirtazapine (REMERON) 15 MG tablet Take 1 tablet (15 mg total) by mouth at bedtime. 11/15/2023 Active methylphenidate HCl (RITALIN) 10 MG tablet Take 1 tablet (10 mg total) by mouth 2 times a day with meals. 06/16/2021 Active cyanocobalamin (VITAMIN B-12) 1000 MCG tablet Take 1 tablet (1,000 mcg total) by mouth daily. Active dextroamphetami ne-amphetamine (ADDERALL) 10 mg Tab Take 1 tablet (10 mg total) by mouth 3 times a day. Active DOCOSAHEXAENOIC ACID ORAL Take 1 capsule by mouth 2 times a day. Active esomeprazole (NEXIUM) 40 MG capsule Take 1 capsule (40 mg total) by mouth every morning before breakfast. 08/10/2020 Active lysine 1,000 mg Tab Take 1 tablet by mouth daily. Active allopurinoL (ZYLOPRIM) 300 MG tablet Take 1 tablet (300 mg total) by mouth daily. 06/27/2021 Active aspirin 81 MG EC tablet Take 1 tablet (81 mg total) by mouth daily. Active atorvastatin (LIPITOR) 40 MG tablet Take 1 tablet (40 mg total) by mouth daily. 04/05/2020 Active CHLORTHALIDONE ORAL Active cholecalciferol , vitamin D3, 10 mcg (400 unit) Tab tablet Take 1 tablet (400 Units total) by mouth daily. Active Family History Medical History Relation Comments Breast Cancer Brother Myeloma Brother GI Cancer Paternal Grandfather Kidney Cancer Paternal Grandfather Relation Status Comments Brother Paternal Grandfather Social History Tobacco Use Types Packs/Day Years Used Date Smoking Tobacco: Never Smokeless Tobacco: Never Tobacco Cessation:Counseling Given: Not Answered Alcohol Use Standard Drinks/Week Comments Not Currently 0 (1 standard drink = 0.6 oz pur e alcohol) stopped all alcohol in 2017 Sex and Gender Information Value Date Recorded Sex Assigned at Not on file Legal Sex Male 11:39 AM EST Gender Identity Not on file Sexual Orientation Not on file Last Filed Vital Signs Vital Sign Reading Time Taken Comments Blood Pressure 129/84 07/28/2024 11:00 AM EST Pulse 72 07/28/2024 11:00 AM EST Temperature 36.6 C (97.8 F) 07/28/2024 11:00 AM EST Respiratory Rate 18 07/28/2024 11:00 AM EST Oxygen Saturation - - Inhaled Oxygen Concentration - - Weight 70 kg (154 lb 5.2 oz) 07/28/2024 11:00 AM EST Height - - Body Mass Index - - Plan of Treatment Health Maintenance Due Date Last Done Comments Abnormal Colonoscopy Follow Up 1950 Depression Screening 01/26/1968 Immunization: DTaP/Tdap/Td (1 - Tdap) 1969 Cologuard (FIT-DNA) 1995 Colonoscopy 1995 Colorectal Cancer Screening (MyChart) 1995 Stool Testing (gFOBT) 1995 Immunization: Pneumococcal (1 of 1 - PCV) 01/26/2000 Immunization: Zoster (1 of 2) 01/26/2000 Immunization: COVID-19 (3 - season) 2024 07/24/2020, 07/03/2020 Immunization: RSV (Adult) (1 - 1-dose 75+ series) 2025 Immunization: Influenza (MyC francisco) (Season Ended) 2025 04/18/2017 Insurance MEDICARE A AND [place] [id number] Care Teams Global Cto Relationship Specialty Start Date End Date Sudhir Herndon MD [address] [facility] [address] [place] [address] PCP - General Family Medicine 07/26/24
--- OUTSIDE RECORDS SUMMARY | 2024-12-18 12:46 | XMS_ITS | Patient Health Record ---
[facility] Address [address] [facility] [address] [place] [phone] Care Team Providers Care Wet Mixer Name Role Phone Elsa Herndon Primary Care Provider Justyna Gil Unavailable [phone] [place] sy Unavailable [phone] Allergies No Known Allergies Results Component Value Reference Range Notes Covid test (in house) Reviewed date:02/12/2024 12:32:15 PM Interpretation:Positive Performing Lab: Notes/Report: Positive Result: pos P-Comprehensive Metabolic Pa ruth (CMP) Reviewed date:04/15/2024 05:22:33 PM Interpretation:bun 24 Performing Lab: Notes/Report: Test performed by [facility] [address] [place] [address] , [address], [place] [address] Hector Fisher MD, Creative Services Manager CLIA: [id number] Sodium 142 135-145 mmol/L Potassium 3.8 3.5-5.3 [...] 0.7 <0.2-1.2 mg/dL A/G Ratio 2.0 1.1-2.5 P-Comprehensive Metabolic Pa ruth (CMP) Reviewed date:11/25/2024 04:02:25 PM Interpretation:bun 29 Performing Lab: Notes/Report: Test performed by [facility] [address] [place] [address] , [address], [place] [address] Hector Fisher MD, Creative Services Manager CLIA: [id number] Sodium 142 135-145 mmol/L Potassium 4.3 3.5-5.3 mmol/L Chloride 103 97-108 mmol/L CO2 28 22-32 mmol/L Glucose 80 65-99 mg/dL BUN 29 8-23 mg/dL Creatinine 0.83 0.70-1.30 mg/dL Calcium 9.5 8.6-10.4 mg/dL eGFR by Creatinine 91 >59 mL/min/1.73m2 Protein 6.8 6.0-8.3 g/dL Albumin 4.4 3.5-5.3 g/dL Alkaline Phosphatase 77 40-129 IU/L ALT (SGPT) 15 <5-55 IU/L AST (SGOT) 21 <5-46 IU/L Bilirubin, Total 0.3 <0.2-1.2 mg/dL A/G Ratio 1.8 1.1-2.5 P-PSA Reviewed date:11/25/2024 04:02:25 PM Interpretation:Normal Performing Lab: Notes/Report: Test performed by [facility] [address] [place] [address] , [address], [place] [address] Hector Fisher MD, Creative Services Manager CLIA: [id number] PSA 1.96 <4.00 ng/mL Please note this is an ultrasensitive PSA assay with a lower limit of detection of 0.014 ng/mL. This test is performed by the Rk ECLIA methodology. Values obtained with different assay methods or kits cannot be directly compared. Reason For Referral No Information Medications Medication SIG (Take, Route, Frequency, Duration) Notes Start Date End Date Status Amphetamine-Dextroamphetamin e 10 MG 1 tablet Orally three times a day Active Tadalafil 5 MG 1 tablet as needed Orally Once a day; Duration: 30 day(s) Active Melatonin 5 MG 1 tablet in the even ing Orally Once a day; Duration: 30 day(s) Active Osteo Bi-Flex One Per Day - 1 capsule Or ally twice a day Active Lysine 1000 MG as directed Orally Active Cephalexin 500 MG 1 capsule Orally twi ce a day; Duration: 7 days 12/11/2024 Active Sildenafil Citrate 50 MG 1 tablet as nee ded Orally as directed; Duration: 30 day(s) 07/16/2023 Active Atorvastatin Calcium 40 MG 1 tab(s) oral ly once a day; Duration: 90 days Active Latuda 20 MG 1 tablet Orally Once a day Active Chlorthalidone 25 MG 1/2 tablet Orally o nce a day Active Aspirin 81 MG 1 tab(s) orally once a day; Duration: 30 day(s) Active B-12 1000 MCG 1 tab(s) orally once a day; Duration: 30 day(s) Active Allopurinol 300 MG 1 tab(s) Orally qd Active Fish Oil 1000 MG 1 cap(s) orally 2 ti mes a day Active Potassium Citrate ER 15 MEQ (1620 MG) 2 tab(s) orally bid Active PreserVision AREDS 2 - 1 cap(s) orally o nce a day; Duration: 30 day(s) Active Immunizations Vaccine Route Administration Date Status Comme nts xFluzone High Dose-private (65yr&older) Unknown 04/18/2017 Administered xFluzone High Dose-private (65yr&older) Unknown 03/31/2020 Administered xFluzone High Dose-private (65yr&older) Unknown 03/29/2021 Administered xFlu shot-36 months and older Unknown 03/18/2018 Administered Tetanus Tdap-Adacel (over 7yrs) Unknown 08/12/2018 Refused Prevnar (PCV13) IM Intramuscular 08/12/2018 Administered PNEUMOVAX 23 VACCINE IM Intramuscular 02/09/2020 Administe red Fluzone High Dose (65yr and older) IM Intramuscular 03/31/2019 Administered Fluzone High Dose (65yr and older) Unknown 03/14/2022 Administered Fluzone High Dose (65yr and older) Unknown 04/02/2023 Administered COVID 19 Pfizer IM Intramuscular 07/03/2020 Administered COVID 19 Pfizer IM Intramuscular 07/24/2020 Administered COVID 19 Pfizer Unknown 03/14/2021 Administered Problems Problem Type SNOMED Code ICD Code Onset Dates Problem Status W/U Status Risk Notes Problem Essential hypertension (23887880) Essential (primary) hypertension (I10) Active confirmed Problem Hypokalemia (48899579) Hypokalemia (E87.6) Active confirmed Problem Mixed anxiety and depressive disorder (581974155) Depression with anxiety (F41.8) Active confirmed Problem Mixed hyperlipidemia (833125120) Mixed hyperlipidemia (E78.2) Active confirmed Problem Primary insomnia (8613413) Primary insomnia (F51.01) Active confirmed Problem Chronic maxillary sinusitis (55129086) Chronic maxillary sinusitis (J32.0) Active confirmed Problem Male erectile disorder (824906893) Male erectile disorder (N52.9) Active confirmed Problem Gastroesophageal reflux disease (216632388) GERD without esophagitis (K21.9) Active confirmed Problem Right inguinal hernia (486216979) Right inguinal hernia (K40.90) Active confirmed Problem Attention deficit hyperactivity disorder (995705555) ADHD (attention deficit hyperactivity disorder), combined type (F90.2) Active confirmed Problem Reactive depression (situational) (72187036) Situational depression (F43.21) Active confirmed Problem Chronic fatigue syndrome (94823603) Chronic fatigue (R53.82) Active confirmed Problem Diverticular disease of colon (432631995) Diverticulosis of large intestine without hemorrhage (K57.30) Active confirmed Problem Obstructive sleep apnea syndrome (87003585) MICHAEL (obstructive sleep apnea) (G47.33) Active confirmed Problem Insomnia (217638412) Insomnia, unspecified type (G47.00) Active confirmed Problem Dry mouth (61663163) Dry mouth (R68.2) Active confirmed Problem Reactive depression (11079551) Reactive depression (F32.9) Active confirmed Problem Benign prostatic hypertrophy without outflow obstruction (192053573) Benign prostatic hyperplasia without lower urinary tract symptoms (N40.0) Active confirmed Problem Major depression, single episode (85772205) Major depressive disorder with single episode, remission status unspecified (F32.9) Active confirmed Problem Kidney stone (41674955) Bilateral nephrolithiasis (N20.0) Active confirmed Problem Bug bite with infection, initial encounter (W57.XXXA) Active confirmed Problem Arthropathy of right knee joint (disorder) (340240409) Arthropathy of right knee (M17.11) Active confirmed Problem Osteochondritis dissecans (50430660) 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) Active confirmed Problem Gastroesophageal reflux disease with esophagitis (disorder) (439933616) Gastroesophageal reflux disease with esophagitis without hemorrhage (K21.00) Active confirmed Problem History of diffu se large B-cell lymphoma (Z85.72) Active confirmed Vital Signs Heart Rate 81 /min 12/11/2024 Blood pressure diastolic 70 mm Hg 12/11/2024 Height 67 in 12/11/2024 Blood pressure systolic 110 mm Hg 12/11/2024 Weight 147 lbs 12/11/2024 BMI 23.02 kg/m2 12/11/2024 Encounters Encounter Location Date Provider Diagnosis [facility] [address] [facility] [address] [place] [phone] 02/12/2024 Justyna Gil COVID-19 virus infection U07.1 [facility] [address] [facility] [address] [place] [id number] 04/14/2024 Elsa Herndon Essential (primary) hypertension I10 ; Depression with anxiety F41.8 ; MICHAEL (obstructive sleep apnea) G47.33 ; 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 and Encounter for immunization Z23 [facility] [address] [facility] [address] [place] [id number] 12/11/2024 Portillo [place] Insect bite (nonvenomous) of lower back and pelvis, initial encounter S30.860A and Bitten or stung by nonvenomous insect and other nonvenomous arthropods, initial encounter W57.XXXA [facility] [address] [facility] [address] [place], [place] [id number] 10/13/2024 Elsa Herndon Essential (primary) hypertension I10 ; Benign prostatic hyperplasia without lower urinary tract symptoms N40.0 ; History of diffuse large B-cell lymphoma Z85.72 and BMI 23.0-23.9, adult Z68.23 [facility] [address] [facility] [address] [place], [place] [id number] 04/15/2024 Elsa Herndon [facility] [address] [facility] [address] [place] [id number] 08/13/2024 Elsa [facility] [address] [facility] [address] [facility] [address] [place] [phone] 11/25/2024 Elsa Herndon Assessments Encounter Date Diagnosis (ICD Code) Assessment Notes Treatment Notes Treatment Clinical Notes Section Notes 02/12/2024 COVID-19 virus infection (ICD-10 - U07.1) 04/14/2024 Essential (primary) hypertension (ICD-10 - I10) 04/14/2024 Depression with anxiety (ICD-10 - F41.8) 10/13/2024 Essential (primary) hypertension (ICD-10 - I10) 10/13/2024 Benign prostatic hyperplasia without lower urinary tract symptoms (ICD-10 - N40.0) 12/11/2024 Insect bite (nonvenomous) of lower back and pelvis, initial encounter (ICD-10 - S30.860A) 12/11/2024 Bitten or stung by nonvenomous insect and other nonvenomous arthropods, initial encounter (ICD-10 - W57.XXXA) 04/14/2024 MICHAEL (obstructive sleep apnea) (ICD-10 - G47.33) 10/13/2024 History of diffuse large B-cell lymphoma (ICD-10 - Z85.72) 04/14/2024 Arthropathy of right knee (ICD-10 - M17.11) 10/13/2024 BMI 23.0-23.9, adult (ICD-10 - Z68.23) 04/14/2024 Encounter for immunization (ICD-10 - Z23) Plan Of Treatment Pending Test Test Name Order Date P-CBC with Diff plus Absolute Counts P-TATYANA 10/04/2022 Next Appt Details Provider Name:Elsa Kahn er, 04/20/2025 11:45:00 AM, [facility] [address] [facility], [address], [place], [phone], Insurance Providers Payer Name Payer Address Payer Phone Subscriber Number Group Number Insured Name Patient Relationship to Insured Coverage Start Date Coverage End Date MEDICARE PART B [address] [address] [place] [address] [id number] DIANA MCCORMICK Self - patient is the insured [employer] [address] [address] [place] [address] [id number] DIANA MCCORMICK Self - patient is the insured Medical (General) History Medical History History ICD Code ADHD Kidney Stones Depression Large B cell Lymphoma Covid vaccine x2 (2020) Surgical History Surgery Date(Month/Year) broken nose benign cyst on left arm meniscus repair right knee, [facility] 2012 tonsillectomy dental work colonoscopy, [facility] 2018
--- OUTSIDE RECORDS SUMMARY | 2024-12-18 12:47 | XMS_ITS | Clinical Summary ---
Author Organization Healthcare Address [address] [id number] Care Team Providers Care Concrete Swimming Pool Installer Name Role Phone Juan Clark MD Primary Care Provider [phone] Allergies No known active allergies Medications methylphenidate (Ritalin) 10 MG tablet 06/16/2021 Active lurasidone (Latuda) 20 MG tablet Take 20 mg by mouth 1 (one) time each day. Active esomeprazole (NexIUM) [address] capsule 01/24/2021 Active Melatonin 10 MG tablet Take by mouth. Active L-Lysine 1000 MG tablet Take 1 tablet by mouth 1 (one) time each day. Active omega-3 1000 MG capsule Take 1 capsule by mouth 2 (two) times a day. Active potassium citrate CR (Urocit-K-15) 15 mEq ER tablet 09/10/2020 Active multivitamin (Theragran-M) tablet Take 1 tablet by mouth 1 (one) time each day. Active cholecalciferol (cholecalcifero l) 10 MCG (400 UNIT) tablet Take 400 Units by mouth twice a day. Active chlorthalidone (Hygroton) 25 MG tablet TAKE 1/2 (ONE-HALF) TABLET BY MOUTH ONCE DAILY 06/28/2021 Active atorvastatin (Lipitor) 40 MG tablet 04/05/2021 Active aspirin 81 MG EC tablet Take 81 mg by mouth 1 (one) time each day. Active allopurinol (Zyloprim) 300 MG tablet Take 300 mg by mouth 1 (one) time each day. 06/27/2021 Active Active Problems Problem Noted Date Diagnosed Date Inguinal hernia of right chad e without obstruction or gangrene 06/30/2021 Family History Medical History Relation Name Comments Diabetes Father Hypertension Father Relation Name Status Comments Father Social History Tobacco Use Types Packs/Day Years Used Date Smoking Tobacco: Never Smokeless Tobacco: Never Alcohol Use Standard Drinks/Week Comments Not Currently 0 (1 standard drink = 0.6 oz pur e alcohol) PHQ-2 Answer Date Recorded Patient Health Questionnaire-2 Score 0 06/30/2021 Sex and Gender Information Value Date Recorded Sex Assigned at Not on file Legal Sex Male 8:55 PM EDT Gender Identity Not on file Sexual Orientation Not on file Last Filed Vital Signs Vital Sign Reading Time Taken Comments Blood Pressure 132/83 06/30/2021 8:24 AM EST Pulse 78 06/30/2021 8:24 AM EST Temperature 36.1 C (96.9 F) 06/30/2021 8:24 AM EST Respiratory Rate - - Oxygen Saturation - - Inhaled Oxygen Concentration - - Weight 75.9 kg (167 lb 5.3 oz) 06/30/2021 8:24 A M EST Height 170.2 cm (5' 7 ) 06/30/2021 8:24 AM EST Body Mass Index 26.21 06/30/2021 8:24 AM EST Plan of Treatment Health Maintenance Due Date Last Done Comments [facility]-Depression Screening 1950 [facility]-/Child/Adol SDOH Screenings 1950 [facility]- SDOH Screenings 01/26/1968 [facility]-Adult SDOH Screenings 01/26/1968 [facility]-DTaP,Tdap,and Td Vaccine s (1 - Tdap) 1969 CT Colonography 1995 Colonoscopy 1995 FIT-DNA 1995 FIT 1995 FOBT 1995 Sigmoidoscopy 1995 [facility]-Colorectal Cancer Screening 1995 [facility]-Zoster Vaccines (1 of 2) 01/26/2000 [id number] Vaccine (2 - season) 2024 03/14/2021 [facility]-RSV Vaccine: 60+ Years o r (1 - 1-dose 75+ series) 2025 [facility]-Influenza Vaccine (#1) 2025 04/18/2017 [facility]-Pneumococcal Vaccine: 50 + Years Completed 02/09/2020, 08/12/2018 HPV Vaccines Aged Out No longer eligi ble based on patient's age to complete this topic [facility]-HIB Vaccines Aged Out No longer e ligible based on patient's age to complete this topic [facility]-Hepatitis A Vaccines Aged Out No longer eligible based on patient's age to complete this topic [facility]-IPV Vaccines Aged Out No longer e ligible based on patient's age to complete this topic [facility]-Rotavirus Vaccines Aged Out No lo nger eligible based on patient's age to complete this topic Insurance MEDICARE [employer] [place] [id number] Care Teams Concrete Swimming Pool Installer Relationship Specialty Start Date End Date Juan Clark MD [address] [place] [address] PCP - General 10/29/20
--- OUTSIDE RECORDS SUMMARY | 2024-12-18 12:47 | XMS_ITS | Data Portability ---
Author Organization [place] [facility] Address [address] [place] [address] Assessment No assessment recorded. Plan of Treatment Reminders Order Date Submit Date Provider Last Modified By Organization Details Last Modified Time Details Appointments None record ed. Lab urinal ysis, dipsti ck, auto 019 02/22/[address] [facility], [address], [place], [address], 9 14:47:44 urinal ysis, dipsti ck, auto 018 08/30/[address] [facility], [address], [address], [place], [address], 8 17:12:53 Referral None record ed. Procedures None record ed. Surgeries None record ed. Imaging None record ed. Medication Orders None record ed. Patient TargetsNo targets recorded. Patient Instructions Encounter Date Encounter Id Patient Instructions Last Modified By Organization Details Last Modified Time 08/29/2017 [id number] healthy together [email or web address] Not availabl e 08/29/2017 17:12:53 02/21/2019 [id number] healthy together Not availabl e 02/21/2019 14:47:44 Reason for Referral None Reported. Results Created Date Observation Date Name Description Value Unit Range Abnormal Flag Note LastModifiedBy Organization Detail LastModifiedTime 02/22/20 19 02/21/2019 urina lysis , dipst ick, auto Unknown Analyte Yellow Not Available [facility] [address] [facility] [address], [place], [address], 02/21/2019 14:29:24 02/22/20 19 02/21/2019 urina lysis , dipst ick, auto Unknown Analyte Clear Not Available [facility] [address] [place] [address] [address], [place], [address], 02/21/2019 14:29:24 02/22/2002/21/2019 urina lysis , dipst ick, auto Unknown Analyte 1.015 Not Available [facility] [address] [facility] [address], [place], [address], 02/21/2019 14:29:24 02/22/2002/21/2019 urina lysis , dipst ick, auto Unknown Analyte 1.003 - 1.035 Not Available [facility] [address] [place] [address] [address], [place], [address], 02/21/2019 14:29:24 02/22/2002/21/2019 urina lysis , dipst ick, auto Unknown Analyte 7.0 Not Available [facility] [address] [place] [address] [address], [place], [address], 02/21/2019 14:29:24 02/22/2002/21/2019 urina lysis , dipst ick, auto Unknown Analyte 5.0 - 8.0 Not Available [facility] [address] [place] [address] [address], [place], [address], 02/21/2019 14:29:24 02/22/2002/21/2019 urina lysis , dipst ick, auto Unknown Analyte Negati ve Not Available [facility] [address], [place], [address], 02/21/2019 14:29:24 02/22/20 19 02/21/2019 urina lysis , dipst ick, auto Unknown Analyte Negati ve Not Available [facility] [address], [place], [address], 02/21/2019 14:29:24 02/22/2002/21/2019 urina lysis , dipst ick, auto Unknown Analyte Negati ve Not Available [facility] [address], [place], [address], 02/21/2019 14:29:24 02/22/2002/21/2019 urina lysis , dipst ick, auto Unknown Analyte Negati ve Not Available [facility] [address], [place], [address], 02/21/2019 14:29:24 02/22/20 19 02/21/2019 urina lysis , dipst ick, auto Unknown Analyte Negtiv e Not Available [facility] [address], [place], [address], 02/21/2019 14:29:24 02/22/2002/21/2019 urina lysis , dipst ick, auto Unknown Analyte Negati ve - Trace Not Available [facility] [address], [place], [address], 02/21/2019 14:29:24 02/22/20 19 02/21/2019 urina lysis , dipst ick, auto Unknown Analyte Normal Not Available [facility] [address], [place], [address], 02/21/2019 14:29:24 02/22/20 19 02/21/2019 urina lysis , dipst ick, auto Unknown Analyte Normal Not Available [facility] [address], [place], [address], 02/21/2019 14:29:24 02/22/2002/21/2019 urina lysis , dipst ick, auto Unknown Analyte Negati ve Not Available [facility] [address], [place], [address], 02/21/2019 14:29:24 02/22/2002/21/2019 urina lysis , dipst ick, auto Unknown Analyte Negati ve Not Available [facility] [address], [place], [address], 02/21/2019 14:29:24 02/22/2002/21/2019 urina lysis , dipst ick, auto Unknown Analyte Normal Not Available [facility] [address], [place], [address], 02/21/2019 14:29:24 02/22/2002/21/2019 urina lysis , dipst ick, auto Unknown Analyte Normal - 1mg/dl Not Available [facility] [address], [place], [address], 02/21/2019 14:29:24 02/22/2002/21/2019 urina lysis , dipst ick, auto Unknown Analyte Negati ve Not Available [facility] [address], [place], [address], 02/21/2019 14:29:24 02/22/20 19 02/21/2019 urina lysis , dipst ick, auto Unknown Analyte Negati ve Not Available [facility] [address], [place], [address], 02/21/2019 14:29:24 02/22/2002/21/2019 urina lysis , dipst ick, auto Unknown Analyte 50 Sav/ul Not Available [facility] [address] [facility] [address], [place], [address], 02/21/2019 14:29:24 02/22/20 19 02/21/2019 urina lysis , dipst ick, auto Unknown Analyte Negati ve Not Available [facility] [address], [place], [address], 02/21/2019 14:29:24 02/22/2002/21/2019 urina lysis , dipst ick, auto Unknown Analyte Clean Catch Not Available [facility] [address], [place], [address], 02/21/2019 14:29:24 02/22/2002/21/2019 urina lysis , dipst ick, auto Unknown Analyte Automa beth Not Available [facility] [address] [facility] [address], [place], [address], 02/21/2019 14:29:24 08/30/19 18 08/29/2017 urina lysis , dipst ick, auto Unknown Analyte Yellow Not Available [facility] [address], [place], [address], 08/29/2017 15:17:41 08/30/19 18 08/29/2017 urina lysis , dipst ick, auto Unknown Analyte Clear Not Available [facility] [address], [place], [address], 08/29/2017 15:17:41 08/30/19 18 08/29/2017 urina lysis , dipst ick, auto Unknown Analyte 1.005 Not Available [facility] [address], [place], [address], 08/29/2017 15:17:41 08/30/19 18 08/29/2017 urina lysis , dipst ick, auto Unknown Analyte 6.5 Not Available [facility] [address], [place], [address], 08/29/2017 15:17:41 08/30/19 18 08/29/2017 urina lysis , dipst ick, auto Unknown Analyte Negati ve Not Available [facility] [address], [place], [address], 08/29/2017 15:17:41 08/30/19 18 08/29/2017 urina lysis , dipst ick, auto Unknown Analyte Negati ve Not Available [facility] [address], [place], [address], 08/29/2017 15:17:41 08/30/19 18 08/29/2017 urina lysis , dipst ick, auto Unknown Analyte Negtiv e Not Available [facility] [address], [place], [address], 08/29/2017 15:17:41 08/30/19 18 08/29/2017 urina lysis , dipst ick, auto Unknown Analyte Normal Not Available [facility] [address], [place], [address], 08/29/2017 15:17:41 08/30/19 18 08/29/2017 urina lysis , dipst ick, auto Unknown Analyte Negati ve Not Available [facility] [address], [place], [address], 08/29/2017 15:17:41 08/30/19 18 08/29/2017 urina lysis , dipst ick, auto Unknown Analyte Normal Not Available [facility] [address], [place], [address], 08/29/2017 15:17:41 08/30/19 18 08/29/2017 urina lysis , dipst ick, auto Unknown Analyte Negati ve Not Available [facility] [address], [place], [address], 08/29/2017 15:17:41 08/30/19 18 08/29/2017 urina lysis , dipst ick, auto Unknown Analyte Negati ve Not Available [facility] [address], [place], [address], 08/29/2017 15:17:41 08/30/19 18 08/29/2017 urina lysis , dipst ick, auto Unknown Analyte Clean Catch Not Available [facility] [address], [place], [address], 08/29/2017 15:17:41 08/30/19 18 08/29/2017 urina lysis , dipst ick, auto Unknown Analyte Automa beth Not Available [facility] [address], [place], [address], 08/29/2017 15:17:41 Result Notes None recorded. Problems No Known Problems Medical Equipment None Reported. Allergies No known drug allergies Medications Name Sig Start Date Stop Date Status Note LastModified by Organization Details LastModified Time lysine 1,000 mg tablet 2006 active Medication Description: lysine; Route:oral; refills:0 Not Available Not Available Not Available aspirin 2006 active Medication Description: aspirin; refills:0 Not Available Not Available Not Available vitamin E 2006 active Medication Description: vitamin E; refills:0 Not Available Not Available Not Available hydrochlorot hiazide 2006 active Medication Description: hydrochlorot hiazide; refills:0 Not Available Not Available Not Available simvastatin 2006 active Medication Description: simvastatin; Route:oral; refills:0 Not Available Not Available Not Available coenzyme Q10 2006 active Medication Description: ubiquinone; refills:0 Not Available Not Available Not Available allopurinol 2006 active Medication Description: allopurinol; refills:0 Not Available Not Available Not Available Fish Oil 300 mg-1,000 mg capsule,troy yed release 2006 active Medication Description: omega-3 polyunsatura beth fatty acids; Route:oral; refills:0 Not Available Not Available Not Available Vitals Date Recorded Body height Body mass index (BMI) Body weight Heart rate Systolic And Diastolic Provider Name and Address Organization Details Last Updated DateTime 08/29/2017 167.64 cm 30 kg/m2 36092.18 g 83 /min 126/77 mm[Hg] Adry Andino [facility] 08/29/2017 15:15:57 Date Recorded Body height Body mass index (BMI) Body weight Heart rate Systolic And Diastolic Provider Name and Address Organization Details Last Updated DateTime 02/21/2019 167.64 cm 26.6 kg/m2 28836.74 g 62 /min 118/77 mm[Hg] Anahi Lombardi [facility] 02/21/2019 14:28:19 Social History Question Answer Notes LastModified by [facility] [facility] Details LastModified Time Tobacco Smoking Status Never Smoker [facility]2017 15:16:34 Marital Status [email or web address] Informatio n not available 08/29/2017 What Was The Date Of Your Most Recent Tobacco Screening? 08/29/2017 Information n ot available 08/05/2019 Sex: Unknown Functional Status Question Answer Note LastModified by [facility] Details LastModified Time What is your level of alcohol consumption? Occasional [email or web address] Information not available 08/29/2017 Mental Status None recorded. Family History Relationship Description Onset Age of this Age Resolved Age Notes LastModified by Organization Details LastModified Time Father Family history of malignant neoplasm [email or web address] Not available 08/29 15:16:21 Brother Diabetes mellitus [email or web address] Not available 08/29 15:16:30 Medical History Condition Response Allergies/Hayfever Y Kidney Stones Y Depression Y Kidney Disease Y High Cholesterol Y Past Encounters Encounter ID Performer Location Encounter Start Date Encounter Closed Date Diagnosis/Indication Diagnosis SNOMED-CT Code Diagnosis ICD10 Code Diagnosis Note [id number] CHERELLE TAYLOR MD [facility] [address] [place] [address] 08/29/2017 14:29:48 08/30/2017 10:09:05 Urolithiasis 02525270 N20.9 he will follow-up with me in December in [place]. Will review a CT scan at [facility] regarding potential progressio n of stone disease. Primary er ectile dysfunction 415848022 N52.9 he will try sildenafil 20 mg. He was given a prescripti on #60 with 11 refills Benign pro static hyperplasia with outflow obstruction 031274542 N40.1 he does not feel his symptoms are severe enough to warrant interventi on at this time. [id number] CHERELLE TAYLOR MD [facility] [address] [place] [address] 02/21/2019 14:01:47 02/21/2019 14:41:14 Hemospermia 60922595 R36.1 we will observe. He'll follow up in 6-8 weeks with PSA. He has further bleeding or persistent microscopi c changes related to proceed with cystoscopy . Urolithiasis 88622010 N2 0.9 he will follow-up with me in . [place] Primary er ectile dysfunction [id number] N52.9 he will continuesi ldenafil 20 mg. He was given a prescripti on #60 with 11 refills Health Concerns Section Related Observation LastModified by Organization Detai ls LastModified Time None Recorded Concern Status LastModified by Organization Details LastModified Time None Recorded Advance Directives Directive None Recorded Payers Insurance Date Sequence Insurance Name Policy Number Policy Schneider Covered Member ID Schneider Member ID Guarantor Name 02/18/2019 1 MEDICARE-[place] (MEDICARE[place] Oli Martinez [id number] Oli Martinez 08/29/2017 2 [employer] - MEDICARE SELECT - PLAN F (MEDICARE SUPPLEMENT) Oli Martinez [id number] Oli Martinez Notes Date Note Type Note Provider Name and Address Organization Details Recorded Time 08/29/2017 text/html patient is here to establish urologic care. He previously seen Dr. Valle for urolithiasis. He has not seen him in about a year and a half. He did have shockwave lithotripsy and then renal colic requiring ureteroscopic stone extraction several years ago. He takes allopurinol and chlorthalidone. In June of last year was diagnosed with lymphoma and completed chemotherapy and [facility] in May of last year. His last CT scan was June 13. I reviewed that scan. He hasn't 3 mm stone lower pole right kidney and a 4 mm stone mid lower pole on the left kidney. No other stones were noted. He is scheduled for repeat CT scan in November. I suggest we await that for surveillance regarding his stones. He's had no symptoms of stone. He also mentioned difficulty achieving and maintaining an erection. This has become more noticeable following his chemotherapy. He has never taken medication for this. He states that his libido is at baseline. he also mentioned some urinary symptoms with slow urination. Typically however he only voids one and perhaps 2 times per night. During and following his chemotherapy he did increase his fluid consumption. He apparently had some mild renal insufficiency and is to see nephrology later next week. CHERELLE TAYLOR [place] [facility] [place], [address], [facility] 08/29/2017 17:14:09 02/21/2019 text/html patient is seen initially here and a half ago that was urologic care regarding urolithiasis as well as erectile dysfunction. He has moderate obstructive urinary symptoms is not taking any medication. He typically has nocturia 1-2. He completed chemotherapy for B-cell lymphoma by May 2018. He has had surveillance CT scans. His last CT scan was in August of this year. He was with IV contrast and no stones were seen previous CT scan did show some single small stone in each kidney he has been on allopurinol. States he had good response with sildenafil last visit. He was prompted to come in today as he had one episode of blood-tinged ejaculation last week. He does not have pain. I reviewed his CT scans and combativeness. He has bilateral renal cysts which a sample. We discussed observation for now. We did discuss consideration of flexible cystoscopy of his hematuria persists. [place], [address], [facility] 02/21/2019 14:48:18
[2024-12-18 12:54] LABS: Microscopic, Urine URINE MICROSCOPIC (MICROSCOPIC)
[2024-12-18 13:16] LABS: Hematocrit 38.4 % (42.0-52.0); Hemoglobin 13.1 g/dL (14.1-18.0); Mean Corpuscular HGB Conc 34.1 g/dL (31.8-35.4); Mean Corpuscular Hemoglobin 31.5 pg (27.0-31.2); Mean Corpuscular Volume 92.3 fl (80-94); Nucleated Red Blood Cells % 0 %; Platelet Count 181 K/mm3 (142-424); Red Blood Count 4.16 M/mm3 (4.60-6.20); Red Cell Distribution Width-SD 43.3 fL; White Blood Count 5.4 K/mm3 (4.8-10.8)
[2024-12-18 13:55] LABS: Chloride 99 mmol/L (98-107); Sodium 138 mmol/L (136-145)
[2024-12-18 13:56] LABS: Potassium 3.9 mmoL/L (3.5-5.1)
[2024-12-18 13:58] LABS: Alanine Aminotransferase 21 U/L (12-78); Alkaline Phosphatase 65 U/L (38-126); Aspartate Amino Transferase 33 U/L (17-59); Bilirubin,Total 0.3 mg/dl (0.2-1.3); Blood Urea Nitrogen 30 mg/dl (9-20); Creatinine,Serum 0.90 mg/dl (0.66-1.25); Estimated Glomerular Filt Rate 82 ml/min (>60); GFR (African American) 100 ML/MIN (>60); Glucose 101 mg/dl (74-100); Total Protein,Serum 6.5 g/dl (6.3-8.2)
[2024-12-18 13:59] LABS: Calcium 9.5 mg/dl (8.4-10.2)
[2024-12-18 14:14] LABS: 25-OH Vitamin D, Total 54.3 ng/mL (30-100)
[2024-12-18 14:31] LABS: Uric Acid 3.2 mg/dl (3.5-8.5)
[2024-12-18 15:46] LABS: Anion Gap 12.9 mEq/L (5-15); Carbon Dioxide 30 mmol/L (22.0-30.0)
[2024-12-18 17:52] LABS: Albumin Level 4.2 g/dl (3.5-5.0); Albumin/Globulin Ratio 1.8 (1.1-1.8); Globulin 2.3 g/dL (1.3-3.2)
[2024-12-19 00:48] LABS: Bilirubin,Urine Negative (Negative); Color,Urine YELLOW (Yellow); Glucose,Urine (UA) Negative (Negative); Ketones,Urine Negative (Negative); Leukocyte Esterase,Urine Negative (Negative); PH,Urine 8.0 (5.0-8.5); Protein,Urine Negative (Negative); Specific Gravity, Urine 1.015 (1.005-1.030); Urobilinogen,Urine 0.2 EU/dl (0.2)
[2024-12-19 01:33] LABS: Squamous Epithelial Cell,Urine Occasional #/hpf (0-5); WBC,Urine Occasional #/hpf (0-3)
[2024-12-19 01:35] LABS: Amorphous Sediment,Urine 3+ /lpf
== END 2024-12-18 23:59 | disposition home or self-care (01) ==
LOC: LAB 12:45
PROVIDERS: PCP Family Medicine; Visit Provider Internal Medicine Nephrology
DX: N40.0 Benign prostatic hyperplasia without lower urinary tract symptoms (principal); N20.0 Calculus of kidney; E55.9 Vitamin D deficiency, unspecified; N18.2 Chronic kidney disease, stage 2 (mild); C83.30 Diffuse large B-cell lymphoma, unspecified site; E78.5 Hyperlipidemia, unspecified
CPT/HCPCS: 36415; 80053; 81001; 82306; 82570; 83970; 84156; 84550; 85027

== ENCOUNTER 2025-04-06 12:00 | Outpatient (CLI) | payer MEDICARE, OTHER, SELFPAY ==
[2025-04-06 12:08] LABS: Microscopic, Urine URINE MICROSCOPIC (MICROSCOPIC)
[2025-04-06 12:40] LABS: Hematocrit 40.3 % (42.0-52.0); Hemoglobin 13.9 g/dL (14.1-18.0); Mean Corpuscular HGB Conc 34.5 g/dL (31.8-35.4); Mean Corpuscular Hemoglobin 31.3 pg (27.0-31.2); Mean Corpuscular Volume 90.8 fl (80-94); Nucleated Red Blood Cells % 0 %; Platelet Count 197 K/mm3 (142-424); Red Blood Count 4.44 M/mm3 (4.60-6.20); Red Cell Distribution Width-SD 42.5 fL; White Blood Count 6.1 K/mm3 (4.8-10.8)
[2025-04-06 13:11] LABS: Albumin Level 4.3 g/dl (3.5-5.0); Albumin/Globulin Ratio 1.9 (1.1-1.8); Blood Urea Nitrogen 25 mg/dl (9-20); Carbon Dioxide 29 mmol/L (22.0-30.0); Chloride 101 mmol/L (98-107); Creatinine,Serum 0.90 mg/dl (0.66-1.25); Estimated Glomerular Filt Rate 82 ml/min (>60); GFR (African American) 100 ML/MIN (>60); Globulin 2.3 g/dL (1.3-3.2); Total Protein,Serum 6.6 g/dl (6.3-8.2)
[2025-04-06 13:12] LABS: Alanine Aminotransferase 19 U/L (12-78); Alkaline Phosphatase 66 U/L (38-126); Anion Gap 12.3 mEq/L (5-15); Aspartate Amino Transferase 31 U/L (17-59); Bilirubin,Total 0.6 mg/dl (0.2-1.3); Calcium 9.7 mg/dl (8.4-10.2); Glucose 107 mg/dl (74-100); Potassium 4.3 mmoL/L (3.5-5.1); Sodium 138 mmol/L (136-145)
[2025-04-06 13:28] LABS: 25-OH Vitamin D, Total 58.2 ng/mL (30-100)
[2025-04-06 14:01] LABS: Bilirubin,Urine Negative (Negative); Color,Urine YELLOW (Yellow); Glucose,Urine (UA) Negative (Negative); Ketones,Urine Negative (Negative); Leukocyte Esterase,Urine Negative (Negative); PH,Urine 7.5 (5.0-8.5); Protein,Urine Negative (Negative); Specific Gravity, Urine 1.015 (1.005-1.030); Urobilinogen,Urine 0.2 EU/dl (0.2)
[2025-04-06 15:05] LABS: Bacteria,Urine Trace /lpf; Squamous Epithelial Cell,Urine Occasional #/hpf (0-5)
== END 2025-04-06 23:59 | disposition home or self-care (01) ==
LOC: LAB 12:01
PROVIDERS: PCP Family Medicine; Visit Provider Internal Medicine Nephrology
DX: C83.30 Diffuse large B-cell lymphoma, unspecified site (principal); E55.9 Vitamin D deficiency, unspecified; N20.0 Calculus of kidney; N40.0 Benign prostatic hyperplasia without lower urinary tract symptoms; N18.2 Chronic kidney disease, stage 2 (mild); E78.5 Hyperlipidemia, unspecified
CPT/HCPCS: 36415; 80053; 81001; 82306; 82570; 83970; 84156; 85027